=== PATIENT | female | born 1955 | race Two or more races ===

== ENCOUNTER 2024-09-01 22:07 | Emergency (ER) | payer SELFPAY ==
--- NOTE | 2024-09-01 22:09 | EKG_ITS ---
[facility] Test Date: 2024-09-01 Pat Name: KORI CALDERA Department: Room: - Gender: Female Continuous Improvement Manager: : 1955 Requested By: Reynaldo Darling Order Number: [id number] Reading MD: Reynaldo Darling Measurements Intervals [place] Rate: 69 P: 44 [place]: 148 QRS: -23 QRSD: 94 T: 35 QT: 360 QTc: 386 Interpretive Statements SINUS RHYTHM BORDERLINE LEFT AXIS DEVIATION [QRS AXIS < -20] MODERATE VOLTAGE CRITERIA FOR LVH, CONSIDER NORMAL VARIANT [MEETS CRITERIA IN ONE OF: R(aVL), S(V1), R(V5), R(V5/V6)+S(V1)] NONSPECIFIC T-WAVE ABNORMALITY No previous ECG available for comparison /store/S0/[id number].pdf
--- NOTE | 2024-09-01 22:13 | PD.EDRME ---
Rapid Medical Screening Exam RME Arrival date/time: 09/01/24 22:07 Chief Complaint: Shortness of Breath/Dyspnea RME Narrative: Here today with her daughter with a 1 week history of congestion and cough. She has DM and has had readings >600 today. She is brought in today by her daughter who provides the history. She has a history of pneumonitis and hypersensitivity. Diffuse wheezing noted bilaterally. Work up intiated. Bedside glucose is 171. Medical screening exam complete.
[2024-09-01 22:16] VITALS: BP 143/62; PULSE 110; RESP 20; O2SAT 91; BMI 32.5
--- NOTE | 2024-09-01 22:25 | PD.EDSOB ---
ED SOB =RME/HPI General Chief Complaint: Shortness of Breath/Dyspnea Stated Complaint: SOB Time Seen by Provider: 09/01/24 22:23 Arrival date/time: 09/01/24 22:07 Limitations: no limitations RME / HPI RME / HPI Narrative: Here today with her daughter with a 1 week history of congestion and cough. She has DM and has had readings >600 today. She is brought in today by her daughter who provides the history. She has a history of pneumonitis and hypersensitivity. Diffuse wheezing noted bilaterally. Work up intiated. Bedside glucose is 171. Medical screening exam complete. DR. AGUILAR MAIN ED EVALUATION: 69 y/o female with Hx of Reactive Pneumonitis and DM presents to ED BIB daughter c/o generalized weakness, cough and congestion x 1 week. Per daughter, patient gets pneumonitis with any viral infection. Patient has been treated with albuterol breathing treatments and steroids. Patient has had increased blood sugar which is normally controlled with insulin. Blood sugar had decreased 2 days ago although symptoms have worsened over the last 3 days, and so patient was brought in for lab work. No other concerns or complaints expressed at this time. Related Data Allergies Allergy/AdvReac Type Severity Reaction Status Date / Time No Known Allergies Allergy Verified 09/01/24 22:16 Review of Systems Review of Systems Systems Reviewed: All systems reviewed, normal except as documented Narrative Review of Systems: GEN: No fever, no chills, no weight loss EYES: No discharge, no visual changes, no pain HEENT: No ear pain, no congestion, no sore throat PULM: + shortness of breath, + cough, + congestion CV: No chest pain, no dyspnea on exertion, no palpitations GI: No nausea, no vomiting, no diarrhea, no abdominal pain, no constipation : No frequency, no urgency and no dysuria MUSC/SKEL: No joint pain, no back pain SKIN: No rash PSYCH: No hallucinations, no depression HEME/LYMPH: No easy bleeding or bruising tendencies NEURO: No weakness, no headache Past Medical History Past Medical History RESPIRATORY: Positive Respiratory Disorders (Reactive Pneumonitis) ENDOCRINE: Positive Diabetes Mellitus Type 2 Social History SMOKING STATUS: Never smoker ED Exam General Limitations: Present no limitations General appearance: Present alert and in no apparent distress Head Head exam: Present atraumatic Eye Eye exam: Present normal appearance, PERRL and EOMI ENT ENT exam: Present normal exam, normal oropharynx and mucous membranes moist Neck Neck exam: Present normal inspection, full ROM and trachea midline Chest Chest inspection: Present normal inspection and symmetric chest wall rise Respiratory Respiratory exam: Present respiratory distress, prolonged expiratory phase and other (shaking upon exhalation) Cardiovascular Cardiovascular exam: Present regular rate, normal rhythm and normal heart sounds Abdominal Exam Abdominal exam: Present soft and normal bowel sounds Extremities Exam Extremities exam: Present normal inspection and full ROM Back Exam Back exam: Present normal inspection and full ROM Neurological Exam Neurological exam: Present alert, oriented X3 and CN II-XII intact Psychiatric Psychiatric exam: Present normal affect and normal mood Skin Skin exam: Present warm, dry, intact and normal color Course Quality Measures none Orders Category Date Time Status EKG (ED ONLY) *Do not use* NOW Care 09/01/24 22:10 Active Glucose [Bedside Blood Glucose] NOW Care 09/01/24 22:16 Active EKG (ED Only) Stat Exams 09/01/24 22:09 Ordered BNP [B-Type Natriuretic Peptide] Stat Lab 09/01/24 22:11 Ordered CBC Stat Lab 09/01/24 22:10 Ordered CMP [Comprehensive Metabolic Panel] Stat Lab 09/01/24 22:10 Ordered Ketone [Beta Hydroxybutyrate] Stat Lab 09/01/24 22:10 Ordered Lactic Acid [Lactate (Lactic Acid)] Stat Lab 09/01/24 22:10 Ordered Troponin I Stat Lab 09/01/24 22:10 Ordered UA [Urinalysis] Stat Lab 09/01/24 22:11 Ordered Venous Blood Gas Stat Lab 09/01/24 22:10 Ordered Albuterol/Ipratr Rt Keysha [Duoneb Rt Keysha] Med 09/01/24 22:09 Once 3 ml INH X1 ONE Albuterol/Ipratr Rt Keysha [Duoneb Rt Keysha] Med 09/01/24 22:09 Pending 3 ml INH X1 ONE Sodium Chloride 0.9% 1000 ml [Ns] 1,000 ml Med 09/01/24 22:13 Discontinued IV 999 mls/hr Shortness of Breath / Dyspnea MDM Narrative MDM Narrative:: Scribe Attestation: Yvonne Go am scribing for and in the presence of Dr. Aguilar. Provider Notation: Although this document has been carefully reviewed, there may still be some phonetic and other typographical errors.? These errors are purely grammatical due to imperfections in the software program and should not be construed in any way to? compromise the substance of the patient's medical care during this visit. Patient signed-out to Dr. Zhang at 11 PM. Patient data External records reviewed:: [facility] previous records (No prior ED records available for review.) Clinical information provided by:: family (daughter) Social determinants that could affect healthcare access:: none Patient has the following chronic illnesses:: Type II DM How is presenting disease/condition affected by chronic disease/condition?: exacerbated by Evaluation data The following diagnostics were reviewed and interpreted by me:: lab results and EKG tracing(s) Lab and/or radiology exams considered but not ordered:: None Interpretation Summary: Pending lab results. Medications / Prescriptions Medications or Prescriptions considered but not ordered:: None Medication administrations:: Medication Administration History Discontinued Medications Albuterol/Ipratropium (Albuterol/Ipratropium (Duoneb) Rt Keysha 3 Ml Nebu) 3 ml INH X1 ONE Stop: 09/01/24 22:10 Albuterol/Ipratropium (Albuterol/Ipratropium (Duoneb) Rt Keysha 3 Ml Nebu) 3 ml INH X1 ONE Stop: 09/01/24 22:10 Sodium Chloride (Ns) 1,000 mls @ 999 mls/hr IV .Q1H1M ONE Stop: 09/01/24 23:13 See above Consultations Consultation(s) initiated? (list below): No Diagnosis Shortness of Breath Differential Diagnosis: congestive heart failure, community acquired pneumonia and pulmonary embolism Most likely diagnosis given after review of the tests above:: Reactive Pneumonitis Admission Indicated Admission indicated?: not indicated Explain why admission is indicated or not indicated:: Pending labs and final disposition. Admission Request Was there a request for admission?: No Disposition Plan Disposition Plan: other (specify) (Patient signed-out to Dr. Zhang at 11 PM.) Discharge Plan Problem List Clinical Impression: Pneumonitis Patient/Caregiver Discharge Instructions Print Language: Maori
[2024-09-01 22:48] LABS: Basophils # (Auto) 0.0 Thou/mm3 (0.0-0.2); Basophils % (Auto) 0 % (0-2.5); Eosinophils # (Auto) 0.0 Thou/mm3 (0.0-0.5); Eosinophils % (Auto) 0 % (0-10); Hematocrit 36.8 % (36.0-46.0); Hemoglobin 11.9 g/dL (12.0-16.0); Immature Granulocytes Auto 0.32 Thou/mm3 (0.00-0.00); Lymphocytes # (Auto) 2.2 Thou/mm3 (1.0-4.8); Lymphocytes % (Auto) 10 % (10-50); Mean Corpuscular HGB Conc 32.3 g/dl (31.0-37.0); Mean Corpuscular Hemoglobin 25.4 pg (25.0-35.0); Mean Corpuscular Volume 79 fL (80-100); Monocytes # (Auto) 1.5 Thou/mm3 (0.0-0.8); Monocytes % (Auto) 7 % (0-12); Neutrophils # (Auto) 17.0 Thou/mm3 (1.8-7.7); Neutrophils % (Auto) 81 % (37-80); Nucleated Red Blood Cell # 0.00 Thou/mm3 (0.00-0.00); Nucleated Red Blood Cell % 0 /100 WBC (0); Platelet Count 362 Thou/mm3 (140-440); RDW Standard Deviation 48.7 fL (36.4-46.3); Red Blood Count 4.69 Miln/mm3 (4.00-5.20); White Blood Count 21.0 Thou/mm3 (3.6-11.0)
[2024-09-01 22:49] LABS: Base Excess, Venous -1 (-3-3); Lactate (Lactic Acid) 2.7 mMol/L (0.4-2.0); O2 Saturation, Venous 96 % (96-97); PCO2, Venous 33 mmHg (36-56); PO2, Venous 73 mmHg (15-58); pH, Venous 7.44 (7.33-7.66)
[2024-09-01 22:49] LABS: Collection Type, Urine Voided; RBC,Urine 0 /hpf (0-3); Squamous Epithelial Cell,Urine 0 /hpf (0-5)
[2024-09-01] MEDS: ALBUTEROL/IPRATROPIUM (Duoneb) RT SOL 3 ML NEBU INH ×2 (22:51→23:58)
[2024-09-01 22:55] VITALS: PULSE 71; RESP 12; O2SAT 99
[2024-09-01 22:56] LABS: Bilirubin,Urine Negative (Negative); Blood,Urine Negative (Negative); Clarity,Urine Clear (Clear/Hazy); Color,Urine Colorless (Lt Yel-Yel); Glucose, Urine 3+ (Negative); Ketones,Urine Negative (Negative); Leukocyte Esterase,Urine Negative (Negative); Nitrite,Urine Negative (Negative); PH,Urine 6.0 (5.0-7.0); Protein,Urine Negative (Neg - Trace); Specific Gravity,Urine 1.006 (1.001-1.035); Urobilinogen,Urine Negative mg/dL (0.0-1.0); WBC,Urine 1 /hpf (0-5)
--- NOTE | 2024-09-01 22:57 | PD.EDADDENDU ---
Emergency Room Addendum <Yvonne Heath - Last Filed: 09/01/24 23:50> Addendum Narrative: I took over the care from previous shift physician at 11 PM on 09/01/2024. See previous notes for complete H & P and ED course. I reviewed all diagnostic test results. My interpretation of the EKG is sinus rhythm with no acute ST?T changes. Blood tests and urine tests Diagnoses include: Hypersensitive pneumonitis, Pneumonitis. Treatment here included IVF, Albuterol/Ipratroprium Duoneb. Based on my best medical judgment, made decision no further evaluation or treatment indicated at this time. Patient understands and agrees to the discharge instructions customized and printed, see below. Discharge Instructions from Dr. Zhang printed for you: 1. Fortunately, we were able to help you feel better. 2. Continue current care with your daughter, Dr. Medina. 3. Seek immediate medical care with worsening or with any concerns. Dean Zhang MD <Dean Zhang MD - Last Filed: 09/02/24 02:06> Addendum Narrative: I took over the care from previous shift physician at 11 PM on 09/01/2024. See previous notes for complete H & P and ED course. I reviewed all diagnostic test results. My interpretation of the EKG is sinus rhythm with no acute ST?T changes. Blood tests and urine tests remarkable for WBC 21 (due to recent daily steroids). Diagnoses include: Hypersensitive pneumonitis exacerbation. Treatment here included IVF and DuoNeb treatments. Significant improvement noted. Discussed the case with Dr. Medina (our ICU attending) and followed her instructions, including prescription for ipratropium Nebules and Tylenol with codeine. Based on my best medical judgment, made decision no further evaluation or treatment indicated at this time. Patient understands and agrees to the discharge instructions customized and printed, see below. Discharge Instructions from Dr. Zhang printed for you: 1. Fortunately, we were able to help you feel better. 2. Continue current care with your daughter, Dr. Medina. 3. Seek immediate medical care with worsening or with any concerns. Dean Zhang MD
[2024-09-01 23:10] LABS: B-Type Natriuretic Peptide 56 pg/mL (0-100)
[2024-09-01 23:11] LABS: Alanine Aminotransferase 25 U/L (10-49); Albumin, Serum 4.3 gm/dL (3.4-4.8); Albumin/Globulin Ratio 1.8 (1.2-2.2); Alkaline Phosphatase 85 U/L (46-116); Anion Gap 13 (7-16); Aspartate Amino Transferase 18 U/L (0-34); BUN/Creatinine Ratio 23 Ratio (12-20); Bilirubin,Total 0.4 mg/dL (0.3-1.2); Blood Urea Nitrogen 32 mg/dL (9-23); Calcium 10.0 mg/dL (8.3-10.6); Calcium (Corrected) 10.0 mg/dL (8.5-10.1); Carbon Dioxide 21.2 mMol/L (20.0-31.0); Chloride 102 mMol/L (98-107); Creatinine (Component) 1.4 mg/dL (0.6-1.3); Estimated Creatinine Clearance 40.3 mL/min (>60); Globulin 2.4 gm/dL (2.3-3.5); Glucose 157 mg/dL (74-106); Osmolality,Calculated 281 (275-295); Potassium 4.0 mMol/L (3.4-5.1); Sodium 136 mMol/L (136-145); Total Protein 6.7 gm/dL (5.7-8.2); Troponin I < 0.020 ng/mL (0.0-0.045); eGFR 41 See Note
[2024-09-01 23:35] LABS: Beta Hydroxybutyrate 0.1 mmol/L (<0.6)
[2024-09-01 23:54] VITALS: BP 116/41; PULSE 70; RESP 16; O2SAT 93
[2024-09-01 23:59] VITALS: PULSE 72; RESP 20; O2SAT 100
[2024-09-02] VITALS: BP 116/71; PULSE 94; RESP 18; TEMP 36.6; O2SAT 94
[2024-09-02 01:46] LABS: Reflex Lactate? Y
== END 2024-09-02 00:20 | disposition home or self-care (01) ==
PROVIDERS: Physician Assistant Medical; Emergency Provider Emergency Medicine
DX: J18.9 Pneumonia, unspecified organism (principal); R94.31 Abnormal electrocardiogram [ECG] [EKG]
CPT/HCPCS: 36415; 80053; 81001; 82010; 82803; 83605; 83880; 84484; 85025; 93005; 94640; 99284; A9270

== ENCOUNTER 2024-09-03 11:01 | Inpatient (IN) | payer MEDICARE, OTHER, SELFPAY ==
[2024-09-03] VITALS (23 sets, daily range): BP systolic 127–155; BP diastolic 49–67; PULSE 60–105; RESP 10–34; TEMP 36.4–36.7; O2SAT 90–100; BMI 32.5
--- NOTE | 2024-09-03 11:08 | EDNOTE_ITS ---
ED SOB =RME/HPI General Chief Complaint: Shortness of Breath/Dyspnea Stated Complaint: SOB Time Seen by Provider: 09/03/24 11:04 Arrival date/time: 09/03/24 11:01 Limitations: no limitations RME / HPI RME / HPI Narrative: 69 year old female with history of CAD s/p PCI, hypertension, diabetes, CKD, hypersensitivity pneumonitis presents to the ED with worsening shortness of breath over the past 8 days. She was brought in by her daughter, who reports that the patient is typically able to ambulate and perform ADLs without dyspnea. However, over the past week, the patient has become increasingly short of breath with minimal exertion. This morning, while sitting and drinking coffee, she experienced a sudden worsening of her shortness of breath, prompting the ED visit. She has been on oral steroids for the past 8 days for hypersensitivity pneumonitis flare. Initially, she was taking Prednisone 40 mg daily which was increased to 60 mg daily yesterday. This is reportedly her third flare requiring steroid therapy. Denies fever, chills, chest pain, abdominal pain, nausea, vomiting, diarrhea, leg swelling, or urinary complaints. Daughter also notes that the patient's blood glucose has been elevated over the past several days due to steroid use and is being managed with insulin. Related Data Home Medications ?Medication ?Instructions ?Recorded ?Confirmed [place] QWEEK 09/03/24 albuterol sulfate 90 mcg/actuation 2 inh inhalation Q4 H PRN shortness 09/03/24 09/03/24 aerosol inhaler of breath or wheezing aspirin 81 mg tablet,delayed 81 mg PO QDAY 09/03/24 release (Ecotrin Low Strength) clopidogrel 75 mg tablet (Plavix) 75 mg PO QDAY 09/03/24 dapagliflozin propanediol 10 mg 10 mg PO QDAY 09/03/24 09/03/24 tablet (Farxiga) fluoxetine 20 mg capsule 20 mg PO QDAY 09/03/2409/03 fluticasone furoate-vilanterol inhalation QDAY 5 insulin degludec 100 unit/mL (3 38 unit subcut QDAY 09/03/24 mL) subcutaneous pen (Tresiba FlexTouch U-100 insulin) insulin lispro 100 unit/mL 1 sliding scale dose subcut 09/03/24 09/03/24 subcutaneous pen USEASDIRECTD metformin 1,000 mg tablet,extended 1,000 mg PO QDAY 09/03/24 release 24hr (osmotic) metoprolol tartrate 25 mg tablet 12.5 mg PO Q12H 09/0309/03/24 mycophenolate mofetil 500 mg 750 mg PO BID 09/03/24 tablet (CellCept) rosuvastatin 20 mg tablet (Crestor) 20 mg PO HS 09/03/24 sacubitril 24 mg-valsartan 26 mg 1 tab PO BID 09/03/24 09/03/24 tablet (Entresto) Previous Rx's ?Medication ?Instructions ?Recorded acetaminophen 300 mg-codeine 30 mg 2 tab PO Q8H PRN co ugh #20 tabs 09/01/24 tablet ipratropium bromide 0.02 % 2.5 ml inhalation Q6H PRN 0 09/01/24 solution for inhalation shortness of breath or wheez ing #150 mL Allergies Allergy/AdvReac Type Severity Reaction Status Date / Time Iodinated Contrast Media Allergy Intermediate Difficulty Verified 09/03/24 11:20 Breathing Review of Systems Review of Systems Systems Reviewed: All systems reviewed, normal except as documented Past Medical History Past Medical History CARDIAC: Positive Cardiac Disorders, Coronary Artery Disease and Hypertension RESPIRATORY: Positive Respiratory Disorders (hypersensitivity pneumonitis.), Asthma and Pneumonia GENITOURINARY: Positive Chronic Kidney Disease MUSCULOSKELETAL: Positive Musculoskeletal Disorders (RIGHT KNEE TORN MENISCUS NO SURGERY AWAITING ORTHO) and Arthritis (OSTEOARTHRITIS) ENDOCRINE: Positive Diabetes Mellitus Type 2 Surgical History SURGICAL: Positive Coronary Stent (TRIPLE VESSEL S/P CARDIAC STENT X1) OTHER SURGICAL HX: RIGHT OVARIAN CYST SURG. Social History SMOKING STATUS: Never smoker Past Medical History Comments PMH COMMENT: PmHx: CAD status post 1 stent, orthostatic hypertension, CKD with baseline creatinine of 1.4, T2 IDDM, asthma, hypersensitivity pneumonitis Pshx: ovarian cyst removal, cholecystectomy, VATS FmHx: CAD, DM SocHx: Denies any alcohol, drugs or tobacco use. ED Exam General Limitations: Present no limitations General appearance: Present alert and other (increased work of breathing ) Head Head exam: Present atraumatic Eye Eye exam: Present normal appearance, PERRL and EOMI ENT ENT exam: Present normal exam, normal oropharynx and mucous membranes moist Neck Neck exam: Present normal inspection, full ROM and trachea midline Chest Chest inspection: Present normal inspection and symmetric chest wall rise Respiratory Respiratory exam: Present other (Increased work of breathing, increased respiratory rate, bilateral decreased breath sounds, expiratory wheezing, greater than inspiratory wheezing throughout, no rales or crackles) Cardiovascular Cardiovascular exam: Present regular rate, normal rhythm and normal heart sounds Abdominal Exam Abdominal exam: Present soft and normal bowel sounds Extremities Exam Extremities exam: Present normal inspection and full ROM; Absent pedal edema Back Exam Back exam: Present normal inspection and full ROM Neurological Exam Neurological exam: Present alert, oriented X3 and CN II-XII intact Psychiatric Psychiatric exam: Present normal affect and normal mood Skin Skin exam: Present warm, dry, intact and normal color Course Quality Measures none Orders Category Date Time Status Video Systems Engineer Q4H START 00 Care 09/03/24 11:39 Active EKG (ED ONLY) *Do not use* NOW Care 09/03/24 11:09 Completed Insert [Insert IV] NOW Care 09/03/24 11:09 Active Referral Respiratory Therapy Stat Cons 09/03/24 11:[address] chest wo con Stat Exams 09/03/24 11:25 Completed EKG (ED Only) Stat Exams 09/03/24 11:09 Draft B-Type Natriuretic Peptide Stat Lab 09/03/24 11:17 Completed Blood Culture (Lab) Stat Lab 09/03/24 11:22 Ordered CBC Stat Lab 09/03/24 11:17 Completed Comprehensive Metabolic Panel Stat Lab 09/03/24 11:17 Completed Lactic Acid [Lactate (Lactic Acid)] Stat Lab 09/03/24 11:17 Completed Legionella Ag, EIA, Urine* Stat Lab 09/03/24 Ordered Magnesium Stat Lab 09/03/24 11:17 Completed Partial Thromboplastin Time Stat Lab 09/03/24 11:17 Completed Procalcitonin Stat Lab 09/03/24 11:17 Completed Prothrombin Time with INR Stat Lab 09/03/24 11:17 Completed Sputum Culture and Gram Stain Stat Lab 09/03/24 15:12 Received Troponin I Stat Lab 09/03/24 11:17 Completed Urinalysis Stat Lab 09/03/24 13:05 Completed Venous Blood Gas Stat Lab 09/03/24 11:17 Completed ALBUTEROL RT 0.5ml [Proventil Rt 0.5ml] Med 09/03/24 11:15 Discontinued 10 mg INH X1 ONE Acetylcysteine 20% -4Ml [Mucomyst 20% -4ml] Med 09/03/24 11:23 Discontinued 3 ml PO X1 ONE Acetylcysteine 20% -4Ml [Mucomyst 20% -4ml] Med 09/03/24 11:28 Discontinued 4 ml INH X1 ONE Budesonide Rt [Pulmicort Rt Keysha] Med 09/03/24 11:23 Discontinued 0.5 mg INH X1 ONE INSULIN LISPRO (AdmeLOG) [HumaLOG] Med 09/03/24 12:30 Discontinued 10 unit SC X1 ONE MethylPREDNISolone.* [SoluMEDROL Inj] Med 09/03/24 11:09 Discontinued 125 mg IVP X1 ONE Ringers Lactated 1000 ml [Lactated Ringers] 1,000 ml Med 09/03/24 12:31 Discontinued IV 999 mls/hr Ringers Lactated 500 ml [Lactated Ringers] 500 ml Med 09/03/24 12:35 Discontinued IV 999 mls/hr Sodium Chloride 0.9% 500 ml [Ns] 500 ml Med 09/03/24 11:09 Discontinued IV 999 mls/hr Sodium Chloride Rt Keysha 10% [NS Rt Keysha 10%] Med 09/03/24 13:15 Discontinued 5 ml INH X1 ONE Sputum Induction PRN RT 09/03/24 13:30 Ordered Vital Signs Vital signs: Vital Signs Temperature 97.9 F 09/03/24 11:04 Pulse Rate 66 09/03/24 11:04 Respiratory Rate 16 09/03/24 11:04 Blood Pressure 151/55 H 09/03/24 11:04 Pulse Oximetry (%) 97 09/03/24 11:04 Oxygen Delivery Method Room Air 09/03/24 11:04 Pulse ox is 97% on room air which is adequate. Shortness of Breath / Dyspnea MDM Narrative MDM Narrative:: Corrine Go am scribing for and in the presence of Dr. Wolfe. Patient data External records reviewed:: [facility] previous records (I reviewed ED visit on 09/01/2024 ) Clinical information provided by:: patient and family (Daughter who is also an continuous dryout operator (Dr. Medina) provided history ) Social determinants that could affect healthcare access:: none Patient has the following chronic illnesses:: CAD s/p PCI, hypertension, diabetes, CKD, hypersensitivity pneumonitis How is presenting disease/condition affected by chronic disease/condition?: exacerbated by Evaluation data The following diagnostics were reviewed and interpreted by me:: lab results, radiology exam(s) and EKG tracing(s) (09/03/2024 @ 11:14 AM. NSR, rate 68, no STEMI. ) Lab and/or radiology exams considered but not ordered:: None Interpretation Summary: Ordering Physician: Bernabe Wolfe MD Date of Service: 09/03/24 Procedure(s): CT chest wo con Accession Number(s): [id number] cc: Bernabe Wolfe MD; Ralph Haro MD; NO PRIMARY/FAMILY,PHYSICIAN~ Examination: CT chest, without intravenous contrast. Sagittal and coronal 2-D reconstructions. Exam date and time: September 03, 2024: 33 hours INDICATIONS: Shortness of breath beginning 2 weeks ago. CTDI:vol (mGy) 17.1 DLP: (mGycm) 587 Technique: Multiple 3.0 mm axial sections of the chest to been obtained. Bone and lung density settings are obtained. Sagittal and coronal 2-D reconstructions have been obtained. Low dose protocols were performed. One or more of the following dose reduction techniques were used; automated exposure control, adjustment of the mA and/or KV according to patient size, use of iterative reconstruction technique. Findings: No thoracic aortic aneurysm dilatation Pulmonary artery segments are not enlarged. Prominent calcification left anterior descending left circumflex right coronary arteries Mild enlargement cardiac contour Soft opacities in the left upper lobe and both lung bases consistent with pneumonia Mildly dilated bronchi in the right lower lobe No visualized liver or splenic lesion Absent gallbladder IMPRESSION: Prominent coronary artery calcification Soft opacities in left upper lobe and both lung bases consistent with pneumonia, follow-up chest imaging recommended to document clearing Dictated By: Ralph Haro MD Signed By: <Electronically signed by Ralph Haro MD in OV> 09/03/24 1255 Medications / Prescriptions Medications or Prescriptions considered but not ordered:: None Medication administrations:: Medication Administration History Acetaminophen (Acetaminophen 325 Mg Tablet) 650 mg PO Q6H PRN PRN Reason: Fever >101.5 Stop: 10/03/24 13:36 Acetylcysteine (Acetylcysteine Keysha 20% 4 Ml Nebu) 3 ml INH Q4HRRT LOREN Stop: 10/03/24 14:59 Last Admin: 09/03/24 15:13 Dose: 3 ml Documented By: RELL Albuterol/Ipratropium (Albuterol/Ipratropium (Duoneb) Rt Keysha 3 Ml Nebu) 3 ml INH Q4HRRT LOREN Stop: 10/03/24 14:59 Last Admin: 09/03/24 15:13 Dose: 3 ml Documented By: RELL Albuterol/Ipratropium (Albuterol/Ipratropium (Duoneb) Rt Keysha 3 Ml Nebu) 3 ml INH Q2HR PRN PRN Reason: SHORTNESS OF BREATH OR WHEEZE Stop: 10/03/24 15:34 Aspirin (Aspirin Ec 81 Mg Tabec) 81 mg PO QDAY [facility] Stop: 10/04/24 08:59 Atorvastatin Calcium (Atorvastatin Calcium 20 Mg Tablet) 80 mg PO HS [facility] Stop: 10/03/24 20:59 Clopidogrel Bisulfate (Clopidogrel Bisulfate 75 Mg Tablet) 75 mg PO QDAY [facility] Stop: 10/04/24 08:59 Dextrose (Dextrose 50%-Water Inj 50 Ml Syringe) 25 ml IV Q15MIN PRN PRN Reason: BG 50-70 responsive npo pt Stop: 10/03/24 13:30 Dextrose (Dextrose 50%-Water Inj 50 Ml Syringe) 50 ml IV Q15MIN PRN PRN Reason: BG <50 OR BG <70 & pt unresponsive Stop: 10/03/24 13:30 Famotidine (Famotidine Inj 10 Mg/Ml Vial 2 Ml) 10 mg IVP BID [facility] Stop: 10/03/24 20:59 Fluoxetine HCl (Fluoxetine Hcl 10 Mg Capsule) 20 mg PO QDAY [facility] Stop: 10/04/24 08:59 Glucagon (Glucagon Inj 1 Mg Vial) 1 mg IM Q15MIN PRN PRN Reason: BG <70, and no IV access Heparin Sodium (Porcine) (Heparin Sod Inj 5000 Unit/Ml Vial) 5,000 unit SC Q8HR LOREN Stop: 09/17/24 13:59 Last Admin: 09/03/24 15:34 Dose: 5,000 unit Documented By: CECILIA Co-signed By: Azithromycin 500 mg/ Sodium (Chloride) 250 mls @ 250 mls/hr IV DAILY [facility] Stop: 09/11/24 08:59 Ceftriaxone Sodium/Dextrose (Rocephin/D5w 1gm Iv Premix) 1 gm in 50 mls @ 100 mls/hr IV QDAY [facility] Stop: 09/10/24 14:14 Last Admin: 09/03/24 15:34 Dose: 100 mls/hr Documented By: CECILIA Insulin Glargine (Insulin Glargine (Lantus) 5 Unit/0.05 Ml (Per 5 Units)) 38 unit SC HS [facility] Stop: 10/03/24 20:59 Insulin Human Lispro (Insulin Lispro (Admelog) 1 Unit/0.01 Ml Unit) 0 unit SC AC [facility]; Protocol Stop: 10/03/24 16:59 Insulin Human Lispro (Insulin Lispro (Admelog) 1 Unit/0.01 Ml Unit) 10 unit SC TID [facility] Stop: 10/03/24 13:59 Last Admin: 09/03/24 15:44 Dose: Not Given Documented By: CECILIA Non-Admin Reason: Glucose, LOW Methylprednisolone Sodium Succinate (Methylprednisolone Sod Succ 40 Mg Vial) 80 mg IVP BID [facility] Stop: 09/11/24 08:59 Metoclopramide HCl (Metoclopramide Inj 5 Mg/Ml Vial 2 Ml) 10 mg IVP Q6H PRN; Protocol PRN Reason: NAUSEA OR VOMITING Stop: 10/03/24 13:36 Metoprolol Tartrate (Metoprolol Tartrate 25 Mg Tablet) 12.5 mg PO BID [facility] Stop: 10/03/24 20:59 Discontinued Medications Acetylcysteine (Acetylcysteine Keysha 20% 4 Ml Nebu) 3 ml PO X1 ONE Stop: 09/03/24 11:24 Last Admin: 09/03/24 11:38 Dose: Not Given Documented By: BRIAN Non-Admin Reason: Cancelled by Provider Acetylcysteine (Acetylcysteine Keysha 20% 4 Ml Nebu) 4 ml INH X1 ONE Stop: 09/03/24 11:29 Last Admin: 09/03/24 11:30 Dose: 4 ml Documented By: RELL Albuterol (Albuterol Rt 2.5 Mg/0.5 Ml Nebu) 10 mg INH X1 ONE Stop: 09/03/24 11:16 Last Admin: 09/03/24 11:30 Dose: 10 mg Documented By: RELL Budesonide (Budesonide Rt 0.5 Mg/2 Ml Nebu) 0.5 mg INH X1 ONE Stop: 09/03/24 11:24 Last Admin: 09/03/24 11:30 Dose: 0.5 mg Documented By: RELL Famotidine (Famotidine Inj 10 Mg/Ml Vial 2 Ml) 20 mg IVP BID [facility] Stop: 10/03/24 20:59 Sodium Chloride (Ns) 500 mls @ 999 mls/hr IV .Q31M ONE Stop: 09/03/24 11:39 Last Infusion: 09/03/24 12:16 Dose: Infused Documented By: Admin: 09/03/24 11:34 Dose: 999 mls/hr Documented By: BRIAN Lactated Ringer's (Lactated Ringers) 1,000 mls @ 999 mls/hr IV .Q1H1M ONE Stop: 09/03/24 13:31 Last Admin: 09/03/24 12:35 Dose: Not Given Documented By: BRIAN Non-Admin Reason: Cancelled by Provider Lactated Ringer's (Lactated Ringers) 500 mls @ 999 mls/hr IV .Q31M ONE Stop: 09/03/24 13:05 Last Infusion: 09/03/24 13:54 Dose: Infused Documented By: Admin: 09/03/24 12:43 Dose: 999 mls/hr Documented By: BRIAN Magnesium Sulfate (Magnesium Sulfate Ivpb) 2 gm in 50 mls @ 25 mls/hr IV X1 ONE Stop: 09/03/24 15:35 Last Admin: 09/03/24 16:07 Dose: 25 mls/hr Documented By: CECILIA Azithromycin 500 mg/ Sodium (Chloride) 250 mls @ 250 mls/hr IV X1 ONE Stop: 09/03/24 14:44 Last Admin: 09/03/24 16:13 Dose: 250 mls/hr Documented By: CECILIA Insulin Human Lispro (Insulin Lispro (Admelog) 1 Unit/0.01 Ml Unit) 10 unit SC X1 ONE Stop: 09/03/24 12:31 Last Admin: 09/03/24 12:43 Dose: 10 unit Documented By: BRIAN Co-signed By: NATHALY Methylprednisolone Sodium Succinate (Methylprednisolone Sod Succ 62.5 Mg/Ml 2ml Vial) 125 mg IVP X1 ONE Stop: 09/03/24 11:10 Last Admin: 09/03/24 11:31 Dose: 125 mg Documented By: BRIAN Methylprednisolone Sodium Succinate (Methylprednisolone Sod Succ 40 Mg Vial) 80 mg IVP BID [facility] Stop: 09/10/24 20:59 Sodium Chloride (Sodium Chloride Rt 10% 15 Ml Nebu) 5 ml INH X1 ONE Stop: 09/03/24 13:16 Last Admin: 09/03/24 15:52 Dose: Not Given Documented By: RUFINA(2) Non-Admin Reason: Other, see note Comments: not needed See above Consultations Consultation(s) initiated? (list below): No Diagnosis Shortness of Breath Differential Diagnosis: acute exacerbation of chronic obstructive airways disease, congestive heart failure, community acquired pneumonia and asthma with exacerbation Most likely diagnosis given after review of the tests above:: Exacerbation of asthma Respiratory failure Admission Indicated Admission indicated?: indicated Admission Request Was there a request for admission?: Yes Admission Attestation Admission request attestation: Discussed case with [] from Hospitalist service regarding admission. Discussed patients ED course, exam findings, labs, and radiology results. The Hospitalist [agrees,declines] to accept the patient for admission. Disposition Plan Disposition Plan: Admit Critical Care Time Critical Care Time Critical Care Time: Yes Total Critical Care Time (min.): 45 Attestation: The high probability of sudden, clinically significant deterioration in the patient's condition required the highest level of my preparedness to intervene urgently. The services I provided to this patient were to treat and/or prevent clinically significant deterioration. Services included the following: chart data review, reviewing nursing notes and/or old charts, documentation time, ada accommodation consultant collaboration regarding findings and treatment options, medication orders and management, direct patient care, vital sign assessments and ordering, interpreting and reviewing diagnostic studies and lab tests. Aggregate critical care time includes only time during which I was engaged in work directly related to the patient's care, as described above, whether at bedside or elsewhere in the Emergency Department. It did not include time spent performing other reported procedures or the services of residents, students, nurses or physician assistants. Discharge Plan Plan Patient Disposition: Admit Acute Care w/in Hospital Problem List Clinical Impression: Asthma with exacerbation, Respiratory failure
--- NOTE | 2024-09-03 11:09 | EKG_ITS ---
[facility] Test Date: 2024-09-03 Pat Name: KORI CALDERA Department: Room: - Gender: Female Engine Specialist: : 1955 Requested By: Bernabe Darling Order Number: [id number] Reading MD: Bernabe Darling Measurements Intervals [employer] Rate: 68 P: 31 RI: 144 QRS: -29 QRSD: 95 T: -1 QT: 346 QTc: 370 Interpretive Statements SINUS RHYTHM BORDERLINE LEFT AXIS DEVIATION [QRS AXIS < -20] MODERATE VOLTAGE CRITERIA FOR LVH, CONSIDER NORMAL VARIANT [MEETS CRITERIA IN ONE OF: R(aVL), S(V1), R(V5), R(V5/V6)+S(V1)] Compared to ECG 09/01/2024 23:06:54 T-wave abnormality no longer present /store/S0/[id number].pdf
--- NOTE | 2024-09-03 11:18 | PC.NURSE ---
RT elam for Nebulizer tx.
--- NOTE | 2024-09-03 11:25 | XR_ITS ---
Examination: CT chest, without intravenous contrast. Sagittal and coronal 2-D reconstructions. Exam date and time: September 03, 2024: 33 hours INDICATIONS: Shortness of breath beginning 2 weeks ago. CTDI:vol (mGy) 17.1 DLP: (mGycm) 587 Technique: Multiple 3.0 mm axial sections of the chest to been obtained. Bone and lung density settings are obtained. Sagittal and coronal 2-D reconstructions have been obtained. Low dose protocols were performed. One or more of the following dose reduction techniques were used; automated exposure control, adjustment of the mA and/or KV according to patient size, use of iterative reconstruction technique. Findings: No thoracic aortic aneurysm dilatation Pulmonary artery segments are not enlarged. Prominent calcification left anterior descending left circumflex right coronary arteries Mild enlargement cardiac contour Soft opacities in the left upper lobe and both lung bases consistent with pneumonia Mildly dilated bronchi in the right lower lobe No visualized liver or splenic lesion Absent gallbladder IMPRESSION: Prominent coronary artery calcification Soft opacities in left upper lobe and both lung bases consistent with pneumonia, follow-up chest imaging recommended to document clearing
[2024-09-03 11:27] LABS: Base Excess, Venous 0 (-3-3); O2 Saturation, Venous 85 % (96-97); PCO2, Venous 36 mmHg (36-56); PO2, Venous 49 mmHg (15-58); pH, Venous 7.43 (7.33-7.66)
[2024-09-03 11:28] LABS: Basophils # (Auto) 0.0 Thou/mm3 (0.0-0.2); Basophils % (Auto) 0 % (0-2.5); Eosinophils # (Auto) 0.0 Thou/mm3 (0.0-0.5); Eosinophils % (Auto) 0 % (0-10); Hematocrit 39.3 % (36.0-46.0); Hemoglobin 12.7 g/dL (12.0-16.0); Immature Granulocytes Auto 0.31 Thou/mm3 (0.00-0.00); Lactate (Lactic Acid) 1.9 mMol/L (0.4-2.0); Lymphocytes # (Auto) 1.8 Thou/mm3 (1.0-4.8); Lymphocytes % (Auto) 8 % (10-50); Mean Corpuscular HGB Conc 32.3 g/dl (31.0-37.0); Mean Corpuscular Hemoglobin 25.8 pg (25.0-35.0); Mean Corpuscular Volume 80 fL (80-100); Monocytes # (Auto) 1.3 Thou/mm3 (0.0-0.8); Monocytes % (Auto) 6 % (0-12); Neutrophils # (Auto) 19.1 Thou/mm3 (1.8-7.7); Neutrophils % (Auto) 85 % (37-80); Nucleated Red Blood Cell # 0.00 Thou/mm3 (0.00-0.00); Nucleated Red Blood Cell % 0 /100 WBC (0); Platelet Count 402 Thou/mm3 (140-440); RDW Standard Deviation 50.2 fL (36.4-46.3); Red Blood Count 4.93 Miln/mm3 (4.00-5.20); White Blood Count 22.5 Thou/mm3 (3.6-11.0)
[2024-09-03] MEDS: ALBUTEROL RT 2.5 MG/0.5 ML NEBU 10 MG INH (11:30)
[2024-09-03] MEDS: BUDESONIDE RT 0.5 MG/2 ML NEBU INH (11:30)
[2024-09-03] MEDS: ACETYLCYSTEINE SOL 20% 4 ML NEBU INH (11:30)
[2024-09-03] MEDS: MethylPREDNISolone SOD SUCC 62.5 MG/ML 2ML VIAL 125 MG IVP (11:31)
[2024-09-03] MEDS: SODIUM CHLORIDE 0.9% 500 ML 500 ML 999 ML IV (11:34)
--- NOTE | 2024-09-03 11:48 | PC.NURSE ---
Dr. Somers at bedside evaluating patient for admission.
[2024-09-03 11:49] LABS: Alanine Aminotransferase 29 U/L (10-49); Albumin, Serum 4.2 gm/dL (3.4-4.8); Albumin/Globulin Ratio 1.7 (1.2-2.2); Alkaline Phosphatase 83 U/L (46-116); Anion Gap 13 (7-16); Aspartate Amino Transferase 25 U/L (0-34); BUN/Creatinine Ratio 24 Ratio (12-20); Bilirubin,Total 0.3 mg/dL (0.3-1.2); Blood Urea Nitrogen 41 mg/dL (9-23); Calcium 9.5 mg/dL (8.3-10.6); Calcium (Corrected) 9.5 mg/dL (8.5-10.1); Carbon Dioxide 23.0 mMol/L (20.0-31.0); Chloride 103 mMol/L (98-107); Creatinine (Component) 1.7 mg/dL (0.6-1.3); Estimated Creatinine Clearance 33.2 mL/min (>60); Globulin 2.5 gm/dL (2.3-3.5); Glucose 240 mg/dL (74-106); Magnesium 2.0 mg/dL (1.6-2.6); Osmolality,Calculated 295 (275-295); Potassium 4.4 mMol/L (3.4-5.1); Sodium 139 mMol/L (136-145); Total Protein 6.7 gm/dL (5.7-8.2); Troponin I < 0.020 ng/mL (0.0-0.045); eGFR 32 See Note
[2024-09-03 11:50] LABS: B-Type Natriuretic Peptide 86 pg/mL (0-100)
[2024-09-03 11:58] LABS: INR 0.9 (0.9-1.3); Partial Thromboplastin Time 24.3 Seconds (22.0-36.0); Prothrombin Time 10.4 Seconds (9.0-12.2)
[2024-09-03] MEDS: INSULIN LISPRO (AdmeLOG) 1 UNIT/0.01 ML UNIT 10 UNIT SC ×2 (12:43→21:25)
[2024-09-03] MEDS: RINGERS LACTATED 500 ML 500 ML 999 ML IV (12:43)
[2024-09-03 13:17] LABS: Collection Type, Urine Clean Catch; Squamous Epithelial Cell,Urine 0 /hpf (0-5)
--- NOTE | 2024-09-03 13:17 | PD.PUHP ---
Documentation for date of: 09/03/24 [facility] Pulmonology HP History of Present Illness History of present illness: Mrs. Mcgregor is a wonderfull pleasant 69-year-old female with a history of biopsy-proven hypersensitivity pneumonitis (HP), initially diagnosed in January 2019 following a VATS lung biopsy performed in [place]. Her disease course has been characterized by recurrent inflammatory exacerbations, primarily triggered by viral upper respiratory infections, resulting in acute pulmonary inflammation and bronchospasm. Her daughter, Dr. Medina has been helpful at providing the detailed history recorded below. Past imaging studie reports have been reviewed from her medical records in [place], but actual images are not currently available for review. Her baseline pulmonary imaging has shown reversibility of findings, with CT initially resembling idiopathic pulmonary fibrosis (IPF) (per daughter, Dr. Medina) but returning to baseline following steroid treatment. Her most recent CT in late 2022 showed no chronic fibrotic changes, with only mild right-sided bronchitis noted. She has been treated with mycophenolate mofetil (CellCept) for approximately one year and intermittently with corticosteroids for flares. Approximately two weeks ago, during international travel in [place], the patient developed URI symptoms, which subsequently progressed to another HP flare. This episode worsened following a beach trip and culminated in an ED visit due to severe bronchospasm and profound weakness. Home management efforts, including frequent nebulized bronchodilator therapy (recently escalated to every two hours with the addition of ipratropium), oral mucolytics, and chest percussion therapy, were insufficient to control symptoms. She has been on systemic corticosteroids for about one week during this flare (initially prednisone 40 mg daily for 4 days, increased to 60 mg daily), marking her third steroid course this year. Notably, she developed severe steroid-induced hyperglycemia with glucometer readings >600 mg/dL, requiring high-dose insulin therapy (Lispro 50-60 units and long-acting insulin 35 units). No fever has been reported during this episode. She also experienced profound weakness over the weekend, described as an inability to ambulate or support her own body weight, prompting the family to seek emergency care for further evaluation and labs. Historically, her flares resolve with 2-3 months of steroid therapy. She has no known environmental or allergen triggers; viral infections are the presumed etiology based on clinical pattern and literature review. Her baseline pulmonary function is relatively preserved, with the ability to walk two miles when well. Pulmonary function tests and diffusion capacity, most recently done in [place], have remained stable over the past five years. There is a mild baseline impairment in difussion. The patient has never required home oxygen but did recently obtain an oxygen concentrator as a precautionary measure. Her family is highly medically capable and has managed many aspects of her care at home with extensive equipment and interventions, aiming to avoid hospitalizations given the patient?s strong preference and her immunosuppressed state. Given worsening symptoms despite maximal home interventions, she presented to the ED for further evaluation, lab work, and determination of the appropriate level of care (telemetry vs ICU). Primary concerns include assessing for dehydration, electrolyte abnormalities (e.g., hypokalemia), and complications from hyperglycemia and steroid therapy. Review of Systems Review of Systems Narrative Review of Systems: SEE HPI otherwise negative No jnt pain, no bleeding, no current rash but there is a hx of past rash - self resolved - no dysphagia - no LOC or acute chagne in motor strength weakness 2wks ago typical URI symptoms (sore throat, sneezing, rhinorhea) Meds Home Medications and Allergies Allergies Allergy/AdvReac Type Severity Reaction Status Date / Time Iodinated Contrast Media Allergy Intermediate Difficulty Verified 09/03/24 11:20 Breathing Exam Vital Signs Temp Pulse Resp BP Pulse Ox O2 Del Method 97.9 F 66 20 151/55 H 100 Room Air 09/03/24 11:04 09/03/24 12:46 09/03/24 12:46 09/03/24 11:04 09/03/24 12:46 09/03/24 11:04 Narrative Exam GENERAL: Patient appears to be ill but not in severe distress. HEENT: No facial asymmetry, EOM normal, , no epistaxis, neck supple PULM: bilateral diffuse coarse Rales with diffuse prolonged expiratory phase and wheezing, symmetric well-expanded excursions CARDIAC: Regular rate and rhythm with no pathologic murmurs and no S3 detected. S1, S2 normal GASTROINTESTINAL: Abdomen is soft and nontender without palpable masses, bowel sounds present EXTREMITIES: Radial, femoral and pedal pulses are palpable. There is no leg edema and no sign of phlebitis feet are cool generalized edema is noted. SKIN: Warm and dry without significant rashes or discoloration. NEURO: Moves all extremities, responds to tactile stimulation, mental status is normal, symmetrical antigravity bilateral upper and lower extremity motor strength. Physical Exam Completion Physical Exam Complete?: Yes Results - Medical Director/Head Team Physician Labs 09/03/24 11:17 09/03/24 11:17 Labs: Short CBC 09/03/24 Range/Units 11:17 WBC 22.5 H (3.6-11.0) Thou/mm3 Hgb 12.7 (12.0-16.0) g/dL Hct 39.3 (36.0-46.0) % Plt Count 402 D (140-440) Thou/mm3 BMP 09/03/24 11:17 Sodium 139 Potassium 4.4 Chloride 103 Carbon Dioxide 23.0 BUN 41 H Creatinine 1.7 H Glucose 240 H D Calcium 9.5 Cardiac Enzymes 09/03/24 Range/Units 11:17 Troponin I < 0.020 (0.0-0.045) ng/mL Liver Function 09/03/24 Range/Units 11:17 Total Bilirubin 0.3 (0.3-1.2) mg/dL AST 25 (0-34) U/L ALT 29 (10-49) U/L Alkaline Phosphatase 83 (46-116) U/L Albumin 4.2 (3.4-4.8) gm/dL ABG Interpretation ABG results: 09/03/24 11:17 VBG pH 7.43 VBG pCO2 36 VBG pO2 49 D VBG Base Excess 0 Assessment & Plan Additional Assessment Additional Assessment: Acute exacerbation of obstructive lung disease: Trigger appears to be secondary to a subacute progressive upper respiratory tract infection. COVID-19 and influenza testing should be completed The cause of the obstructive lung disease appears to be multifactorial related to history possibly progressive hypersensitivity pneumonitis with underlying asthma CT imaging has been reviewed by me; there is patchy groundglass, mosaic attenuation probably from air trapping, and diffuse tiny nodular infiltrates particularly in the right lower lobe. There is also mild bronchiectasis in the right lower lobe. Given the miliary type pattern of nodular distribution in in the right lower lobe, history of spontaneously resolving rashes, and responsiveness to steroids; sarcoidosis should also be on the differential. 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 Concurrent viral, fungal versus bacterial infection cannot be ruled out especially given the appearance of the right lower lobe nodules. Some of this may be chronic but without direct comparison to her prior CTs I am unable to tell. Infectious disease workup has been ordered including procalcitonin, Legionella, sputum culture GS, and Fungitell She has trouble tolerating p.o. steroids therefore I agree with IV Solu-Medrol. Please reduce the dose to 80 mg IV twice daily tomorrow. She will likely require long-term taper over the next 2 weeks. Her only long-acting inhaled outpatient medication is fluticasone; she should be transition to triple therapy with Trelegy Ellipta as an outpatient or equivalent combination inhaler. I also recommend outpatient follow up at a tertiary care facility ILD program. I have no objections to IV fluids given her current DARIELA which is probably exacerbated by hyperglycemia/ dehydration. Thank you for the opportunity to participate in the care of Mrs. Medina's lung disease. I will we will continue to follow along with you. Additional Plan Additional Plan: PLAN: See MD orders and discussion above. Will continue supportive care of the organ system problems, diagnoses, and failures noted above. [A central line continues to be necessary for infusion of medications and IV fluids, it is to be removed when other adequate venous access is accomplished.] [Cannot be safely managed without restraints as potential for harm secondary to inadvertent movement and loss of tubes and lines outweighs the burdens of restraint.] This patient is critically ill and required [] minutes of my time to provide documentation, evaluate, manage and maintain or prevent deterioration of the organ systems and problems noted above. This critical care time does not include time I spent performing procedures that are reported separately. [If mccoy catheter present, it remains necessary to monitor urine output continuously, and/or divert urine from the skin. It will be removed per policy when it is not needed for these purposes.] Provider Notation Provider Notation: Although this document has been carefully reviewed, there may still be some phonetic and other typographical errors. These errors are purely grammatical due to imperfections in the software program and should not be construed in any way to compromise the substance of the patient's medical care during this visit. Thank you for the opportunity and privilege in assisting you with this patient's care and management. Quality Measures Quality Measures none Advance care planning discussed with:: other
[2024-09-03 13:35] LABS: Bilirubin,Urine Negative (Negative); Blood,Urine Negative (Negative); Clarity,Urine Clear (Clear/Hazy); Color,Urine Colorless (Lt Yel-Yel); Glucose, Urine 4+ (Negative); Ketones,Urine Negative (Negative); Leukocyte Esterase,Urine Negative (Negative); Nitrite,Urine Negative (Negative); PH,Urine 6.0 (5.0-7.0); Protein,Urine Negative (Neg - Trace); RBC,Urine < 1 /hpf (0-3); Specific Gravity,Urine 1.011 (1.001-1.035); Urobilinogen,Urine Negative mg/dL (0.0-1.0); WBC,Urine 3 /hpf (0-5)
[2024-09-03 13:59] LABS: Procalcitonin 0.11 ng/ml (0.0-0.49)
[2024-09-03 14:21] LABS: Glucose Estimated Average 183 mg/dL (80-131); Hemoglobin A1C 8.0 % Hgb (4.8-6.0)
--- NOTE | 2024-09-03 14:22 | PD.HHHP ---
Documentation for date of: 09/03/24 HPI - Hospitalist History of Present Illness History of present illness: Patient is a 69-year-old female with past medical history of hypertension, insulin-dependent diabetes mellitus type 2, hypersensitivity pneumonitis, asthma, CAD status post 1 stent in 2011, CKD with baseline creatinine of 1.4 who presents to ED with worsening shortness of breath that initially started about 2 weeks ago. Patient was traveling in [place] when she first began to be short of breath. Patient was started on steroids with some improvement. However, for the past week she has been having worsening generalized weakness, cough, dyspnea on exertion and productive cough. Patient was initially diagnosed with hypersensitivity pneumonitis in 2016 status post VATS. And has been on mycophenolate and will take steroids for acute flares. Patient has been on prednisone at 60 mg daily which has caused some difficulty with controlling her blood sugars. Patient at baseline takes Trulicity at 20 units daily, but now requiring about 38 units and a total of 120 units of lispro throughout the day. Patient has been on DuoNebs 4 hours at home, but continues to have scattered wheezing and congestion. Patient has breaks in sentences while speaking. She denies any nausea, vomiting, shortness of breath, chest pain, fevers, chills, dysuria otherwise. She was recently seen in the ED due to hyperglycemia and shortness of breath. Patient was subsequently sent home with DuoNebs without any improvement of her symptoms. Upon evaluation in the ED, Vital signs were Temperature 97.9, heart rate 66, respiratory rate of 16 but labored and blood pressure of 151/55. Patient was noted to have leukocytosis of 22.5 likely due to steroid use. VBG does not show any CO2 retention. Creatinine now 1.7 with mild DARIELA from 1.4. Troponin negative. Patient has since received 1 L IV fluids, 10 units of lispro due to blood glucose of 258, 125 mg of Solu-Medrol and a breathing treatment with Mucomyst. Patient reports mild improvement of respiratory status that only last about 15-30min after breathing treatment. CT chest was done Showing prominent coronary artery calcification and soft opacities in the left upper lobe and both lung bases consistent with pneumonia. In the ED due to persistent dyspnea, will admit patient for further workup and medical management of acute asthma exacerbation versus acute flare of hypersensitivity pneumonitis with possible superimposed pneumonia. Review of Systems Review of Systems Systems Reviewed: All systems reviewed, normal except as documented Past Medical History Past Medical History Comments PMH COMMENT: PmHx: CAD status post 1 stent, orthostatic hypertension, CKD with baseline creatinine of 1.4, T2 IDDM, asthma, hypersensitivity pneumonitis Pshx: ovarian cyst removal, cholecystectomy, VATS FmHx: CAD, DM SocHx: Denies any alcohol, drugs or tobacco use. Meds Home Medications and Allergies Home Medications ?Medication ?Instructions ?Recorded ?Confirmed ?Type [place] QWEEK 09/03/24 History albuterol sulfate 90 mcg/actuation 2 inh inhalation Q4H PRN shortness 09/03/24 09/03/24 History aerosol inhaler of breath or wheezing aspirin 81 mg tablet,delayed 81 mg PO QDAY 09/03/24 09/03/24 History release (Ecotrin Low Strength) clopidogrel 75 mg tablet (Plavix) 75 mg PO QDAY 09/03/24 09/03/24 History dapagliflozin propanediol 10 mg 10 mg PO QDAY 09/03/24 09/03/24 History tablet (Farxiga) fluoxetine 20 mg capsule 20 mg PO QDAY 09/03/24 09/03/24 History fluticasone furoate-vilanterol inhalation QDAY 09/03/24 History insulin degludec 100 unit/mL (3 38 unit subcut QDAY 09/03/24 09/03/24 History mL) subcutaneous pen (Tresiba FlexTouch U-100 insulin) insulin lispro 100 unit/mL 1 sliding scale dose subcut 09/03/24 09/03/24 History subcutaneous pen USEASDIRECTD metformin 1,000 mg tablet,extended 1,000 mg PO QDAY 09/03/24 09/03/24 History release 24hr (osmotic) metoprolol tartrate 25 mg tablet 12.5 mg PO Q12H 09/03/24 09/03/24 History mycophenolate mofetil 500 mg 750 mg PO BID 09/03/24 09/03/24 History tablet (CellCept) rosuvastatin 20 mg tablet (Crestor) 20 mg PO HS 09/03/24 09/03/24 History sacubitril 24 mg-valsartan 26 mg 1 tab PO BID 09/03/24 09/03/24 History tablet (Entresto) Allergies Allergy/AdvReac Type Severity Reaction Status Date / Time Iodinated Contrast Media Allergy Intermediate Difficulty Verified 09/03/24 11:20 Breathing Exam Vital Signs Temp Pulse Resp BP Pulse Ox O2 Del Method 97.9 F 66 25 H 127/49 L 93 L Room Air 09/03/24 13:27 09/03/24 13:27 09/03/24 13:27 09/03/24 13:27 09/03/24 13:27 09/03/24 13:27 Narrative Gen: Labored breathing, well dressed well nourished, cannot speak in full sentences due to dyspnea HEENT: NCAT, PERRLOU, Sclera anicteric, conjunctiva noninjected, oral mucosa moist without erythema Neck: Supple, full range of motion, no LAD CV: RRR, no murmurs, rubs or gallops Resp: Diminished breath sounds in b/l lung bases, scattered rhonchi in all lung ramirez GI: abdomen soft, bowel sounds noted, no tenderness to palpation, no guarding or rebound tenderness, no organomegaly Skin: clean, dry, no rashes, lesions or ecchymosis Ext: no clubbing, cyanosis, or edema Neuro: A&O x3, CN II- XII intact b/l, no focal neurological deficits Results - Hospitalist Labs Diagrams: 09/03/24 11:17 09/03/24 11:17 Labs: Short CBC 09/03/24 Range/Units 11:17 WBC 22.5 H (3.6-11.0) Thou/mm3 Hgb 12.7 (12.0-16.0) g/dL Hct 39.3 (36.0-46.0) % Plt Count 402 D (140-440) Thou/mm3 BMP 09/03/24 11:17 Sodium 139 Potassium 4.4 Chloride 103 Carbon Dioxide 23.0 BUN 41 H Creatinine 1.7 H Glucose 240 H D Calcium 9.5 Cardiac Enzymes 09/03/24 Range/Units 11:17 Troponin I < 0.020 (0.0-0.045) ng/mL Liver Function 09/03/24 Range/Units 11:17 Total Bilirubin 0.3 (0.3-1.2) mg/dL AST 25 (0-34) U/L ALT 29 (10-49) U/L Alkaline Phosphatase 83 (46-116) U/L Albumin 4.2 (3.4-4.8) gm/dL Urine 09/03/24 Range/Units 13:05 Urine Color Colorless A (Lt Yel-Yel) Urine Clarity Clear (Clear/Hazy) Urine pH 6.0 (5.0-7.0) Ur Specific [place] 1.011 (1.001-1.035) Urine Protein Negative (Neg - Trace) Urine Glucose (UA) 4+ A (Negative) ABG Interpretation ABG results: 09/03/24 11:17 VBG pH 7.43 VBG pCO2 36 VBG pO2 49 D VBG Base Excess 0 Assessment & Plan -Hospitalist Additional Assessment Acute Asthma Exacerbation Acute Hypersensitivity Pneumonia with suspected superimposed atypical vs Gram negative bacterial pneumonia - Admit to telemetry - Pulmonology consulted, case discussed and appreciate recommendations - received continuous breathing treatment in ED with very mild improvement of dyspnea - Continue with duonebs q4h with mucomyst - received 125mg of solumedrol in ED and took prednisone 60mg PO daily. Will start on solumedrol 80mg IV BID. Monitor BG closely - chest physiotherapy ordered - started on azithromycin and ceftriaxone for coverage of superimposed pneumonia - Pending infectious w/u including legionella, sputum cultures, [id number] - Holding mycophenolate in the setting of acute flare/ infection due to immunosuppression - Patient will ultimately need referral to tertiary center for ILD clinic upon discharge and Trelegy DARIELA on CKD - receiving 1L bolus in ED - Encouraged PO hydration Type 2 IDDM - pending A1c - hyperglycemia 2/2 recent increased need for steroids, will increase home lantus dose of 20 to 38u with Lispro 10u TID and sliding scale - uptitrate insulin as needed - low consistent carb diet - holding oral hypoglycemic agents due to DARIELA Hypertension - pt at baseline has orthostatic HTN - will restart home metoprolol 12.5mg PO BID - Holding entresto due to DARIELA CAD - continue home ASA, plavix and rosuvastatin Additional Plan Additional Plan: GI ppx: pepcid Nutrition: low consistent carbohydrate DVT Prophylaxis: Heparin 5000u q8h Code Status: full Disposition: Telemetry Quality Measures Quality Measures none Advance care planning discussed with:: patient and child
[2024-09-03] MEDS: ACETYLCYSTEINE SOL 20% 4 ML NEBU 3 ML INH ×3 (15:13→22:02)
[2024-09-03] MEDS: ALBUTEROL/IPRATROPIUM (Duoneb) RT SOL 3 ML NEBU INH ×6 (15:13→22:02)
[2024-09-03] MEDS: cefTRIAXone/D5w 1gm IV premix 1 GM/50 ML BAG IV (15:34)
[2024-09-03] MEDS: HEPARIN SOD INJ 5000 UNIT/ML VIAL SC ×2 (15:34→21:19)
[2024-09-03] MEDS: Magnesium Sulfate 2 GM Ivpb 2 GM/50 ML BAG IV (16:07)
[2024-09-03] MEDS: AZITHROMYCIN INJ 500 MG in SODIUM CHLORIDE 0.9% 250 ML 250 ML 250 MG IV (16:13)
[2024-09-03] MEDS: INSULIN LISPRO (AdmeLOG) 1 UNIT/0.01 ML UNIT SC (17:20)
[2024-09-03] MEDS: ATORVASTATIN CALCIUM 20 MG TABLET 80 MG PO (21:14)
[2024-09-03] MEDS: METOPROLOL TARTRATE 25 MG TABLET 12.5 MG PO (21:14)
[2024-09-03] MEDS: FAMOTIDINE INJ 10 MG/ML VIAL 2 ML IVP (21:18)
[2024-09-03] MEDS: INSULIN GLARGINE (Lantus) 5 UNIT/0.05 ML (PER 5 UNITS) 38 UNIT SC (21:20)
[2024-09-04] VITALS (18 sets, daily range): BP systolic 120–151; BP diastolic 50–62; PULSE 65–89; RESP 17–27; TEMP 36.2–36.9; O2SAT 89–100; BMI 32.5
[2024-09-04] MEDS: ACETYLCYSTEINE SOL 20% 4 ML NEBU 3 ML INH (02:26)
[2024-09-04] MEDS: ALBUTEROL/IPRATROPIUM (Duoneb) RT SOL 3 ML NEBU INH ×7 (02:27→23:59)
[2024-09-04] MEDS: INSULIN LISPRO (AdmeLOG) 1 UNIT/0.01 ML UNIT 10 UNIT SC (06:10)
[2024-09-04] MEDS: HEPARIN SOD INJ 5000 UNIT/ML VIAL SC ×3 (06:11→21:37)
[2024-09-04 06:36] LABS: Basophils # (Auto) 0.0 Thou/mm3 (0.0-0.2); Basophils % (Auto) 0 % (0-2.5); Eosinophils # (Auto) 0.0 Thou/mm3 (0.0-0.5); Eosinophils % (Auto) 0 % (0-10); Hematocrit 36.7 % (36.0-46.0); Hemoglobin 11.5 g/dL (12.0-16.0); Immature Granulocytes Auto 0.40 Thou/mm3 (0.00-0.00); Lymphocytes # (Auto) 2.8 Thou/mm3 (1.0-4.8); Lymphocytes % (Auto) 14 % (10-50); Mean Corpuscular HGB Conc 31.3 g/dl (31.0-37.0); Mean Corpuscular Hemoglobin 25.6 pg (25.0-35.0); Mean Corpuscular Volume 82 fL (80-100); Monocytes # (Auto) 1.2 Thou/mm3 (0.0-0.8); Monocytes % (Auto) 6 % (0-12); Neutrophils # (Auto) 15.5 Thou/mm3 (1.8-7.7); Neutrophils % (Auto) 78 % (37-80); Nucleated Red Blood Cell # 0.00 Thou/mm3 (0.00-0.00); Nucleated Red Blood Cell % 0 /100 WBC (0); Platelet Count 381 Thou/mm3 (140-440); RDW Standard Deviation 50.5 fL (36.4-46.3); Red Blood Count 4.50 Miln/mm3 (4.00-5.20); White Blood Count 19.8 Thou/mm3 (3.6-11.0)
[2024-09-04 07:13] LABS: Alanine Aminotransferase 23 U/L (10-49); Albumin, Serum 3.7 gm/dL (3.4-4.8); Albumin/Globulin Ratio 1.8 (1.2-2.2); Alkaline Phosphatase 67 U/L (46-116); Anion Gap 11 (7-16); Aspartate Amino Transferase 16 U/L (0-34); BUN/Creatinine Ratio 26 Ratio (12-20); Bilirubin,Total 0.3 mg/dL (0.3-1.2); Blood Urea Nitrogen 36 mg/dL (9-23); Calcium 8.9 mg/dL (8.3-10.6); Calcium (Corrected) 9.1 mg/dL (8.5-10.1); Carbon Dioxide 25.3 mMol/L (20.0-31.0); Chloride 105 mMol/L (98-107); Creatinine (Component) 1.4 mg/dL (0.6-1.3); Estimated Creatinine Clearance 40.3 mL/min (>60); Globulin 2.1 gm/dL (2.3-3.5); Glucose 149 mg/dL (74-106); Osmolality,Calculated 292 (275-295); Potassium 4.4 mMol/L (3.4-5.1); Sodium 141 mMol/L (136-145); Total Protein 5.8 gm/dL (5.7-8.2); eGFR 41 See Note
--- NOTE | 2024-09-04 08:28 | PD.HHPROG ---
Documentation for date of: 09/04/24 Subjective - Hospitalist Subjective Interval history: Patient seen and evaluated this AM. Daughter is at bedside. Patient sitting up in bed eating breakfast. She is able to speak in full sentences without any breaks. She has required 3 extra as needed breathing treatments overnight in addition to her q4h doses. Mucomyst appeared to be causing patient to have bronchospasm. She otherwise denies any fevers, chest pain or chills. She continues to have a wet cough. She states that she feels well at rest, but had gotten very tremulous and short of breath upon getting up to use the bathroom. BG was 61 this morning. Daughter states that the patient eats more carbohydrates at home which is likely the reason why her BG is lower here. Review of Systems Review of Systems Systems Reviewed: All systems reviewed, normal except as documented Exam Vital Signs Temp Pulse Resp BP Pulse Ox O2 Del Method 97.4 F 75 20 142/50 H 93 L Nasal Cannula 09/04/24 08:00 09/04/24 08:00 09/04/24 08:00 09/04/24 08:00 09/04/24 08:00 09/04/24 08:00 Narrative Gen: No acute distress HEENT: NCAT, PERRLOU, Sclera anicteric, conjunctiva noninjected, oral mucosa moist without erythema Neck: Supple, full range of motion, no LAD CV: RRR, no murmurs, rubs or gallops Resp: improved air movement, rhonchi noted in b/l lung bases (right >> left), no wheezing or crackles noted GI: abdomen soft, bowel sounds noted, no tenderness to palpation, no guarding or rebound tenderness, no organomegaly Skin: clean, dry, no rashes, lesions or ecchymosis Ext: no clubbing, cyanosis, or edema Neuro: A&O x3, CN II- XII intact b/l, no focal neurological deficits Objective - Hospitalist Labs Diagram: 09/04/24 05:57 09/04/24 05:57 Labs: Laboratory Results - last 24 hr 09/03/24 09/03/24 09/03/24 11:17 13:05 13:31 WBC 22.5 H RBC 4.93 Hgb 12.7 Hct 39.3 MCV 80 MCH 25.8 MCHC 32.3 RDW Std Deviation 50.2 H Plt Count 402 D Neut % (Auto) 85 H Lymph % (Auto) 8 L [place] % (Auto) 6 Eos % (Auto) 0 Baso % (Auto) 0 Neut # (Auto) 19.1 H Lymph # (Auto) 1.8 [place] # (Auto) 1.3 H Eos # (Auto) 0.0 Baso # (Auto) 0.0 Immature Gran # (Auto) 0.31 H Absolute Nucleated RBC 0.00 Immature Gran % 1 H Nucleated RBC % 0 PT 10.4 INR 0.9 APTT 24.3 VBG pH 7.43 VBG pCO2 36 VBG pO2 49 D VBG O2 Sat (Diane) 85 L VBG Base Excess 0 Sodium 139 Potassium 4.4 Chloride 103 Carbon Dioxide 23.0 Anion Gap 13 BUN 41 H Creatinine 1.7 H Estim Creat Clear Calc 33.2 L eGFR 32 L BUN/Creatinine Ratio 24 H Glucose [address] Glu mg/dL 183 H Hemoglobin A1c 8.0 H Calculated Osmolality 295 Lactic Acid 1.9 Calcium 9.5 Corrected Calcium 9.5 Magnesium 2.0 Total Bilirubin 0.3 AST 25 ALT 29 Alkaline Phosphatase 83 Troponin I < 0.020 B-Natriuretic Peptide 86 Total Protein 6.7 Albumin 4.2 Globulin 2.5 Albumin/Globulin Ratio 1.7 Procalcitonin 0.11 Ur Collection Type Clean Catch Urine Color Colorless A Urine Clarity Clear Urine pH 6.0 Ur Specific [place] 1.011 Urine Protein Negative Urine Glucose (UA) 4+ A Urine Ketones Negative Urine Blood Negative Urine Nitrite Negative Urine Bilirubin Negative Urine Urobilinogen (Auto) Negative Ur Leukocyte Esterase Negative Urine RBC < 1 Urine WBC 3 Ur Squamous Epith Cells 0 Urine Bacteria None 09/04/24 05:57 WBC 19.8 H RBC 4.50 Hgb 11.5 L Hct 36.7 MCV 82 MCH 25.6 MCHC 31.3 RDW Std Deviation 50.5 H Plt Count 381 Neut % (Auto) 78 Lymph % (Auto) 14 [place] % (Auto) 6 Eos % (Auto) 0 Baso % (Auto) 0 Neut # (Auto) 15.5 H Lymph # (Auto) 2.8 [place] # (Auto) 1.2 H Eos # (Auto) 0.0 Baso # (Auto) 0.0 Immature Gran # (Auto) 0.40 H Absolute Nucleated RBC 0.00 Immature Gran % 2 H Nucleated RBC % 0 PT INR APTT VBG pH VBG pCO2 VBG pO2 VBG O2 Sat (Diane) VBG Base Excess Sodium 141 Potassium 4.4 Chloride 105 Carbon Dioxide 25.3 Anion Gap 11 BUN 36 H Creatinine 1.4 H Estim Creat Clear Calc 40.3 L eGFR 41 L BUN/Creatinine Ratio 26 H Glucose [address] Glu mg/dL Hemoglobin A1c Calculated Osmolality 292 Lactic Acid Calcium 8.9 Corrected Calcium 9.1 Magnesium Total Bilirubin 0.3 AST 16 ALT 23 Alkaline Phosphatase 67 Troponin I B-Natriuretic Peptide Total Protein 5.8 Albumin 3.7 D Globulin 2.1 L Albumin/Globulin Ratio 1.8 Procalcitonin Ur Collection Type Urine Color Urine Clarity Urine pH Ur Specific [place] Urine Protein Urine Glucose (UA) Urine Ketones Urine Blood Urine Nitrite Urine Bilirubin Urine Urobilinogen (Auto) Ur Leukocyte Esterase Urine RBC Urine WBC Ur Squamous Epith Cells Urine Bacteria ABG Interpretation ABG results: 09/03/24 11:17 VBG pH 7.43 VBG pCO2 36 VBG pO2 49 D VBG Base Excess 0 Assessment & Plan Assessment: Acute Asthma Exacerbation Acute Hypersensitivity Pneumonia with suspected superimposed atypical vs Gram negative bacterial pneumonia - received continuous breathing treatment in ED with very mild improvement of dyspnea - Pulmonology following, appreciate recs - DC mucomyst due to bronchospasm, continue with duonebs q4h and PRN breathing treatments. - Solumedrol 80mg IV BID - Continue with azithromycin and rocephin - chest physiotherapy ordered - Pending infectious w/u including legionella, sputum cultures, [id number] - Holding mycophenolate in the setting of acute flare/ infection due to immunosuppression - Patient will ultimately need referral to tertiary center for ILD clinic upon discharge and Trelegy, as well as long steroid taper DARIELA on CKD, resolving - receiving 1L bolus in ED - improved with PO hydration, continued to encouraged PO hydration Type 2 IDDM - A1c 8.0 - hyperglycemia 2/2 recent increased need for steroids - Will decrease lantus to 30 u qHS due to hypoglycemia this AM - continue lispro 10u TID with sliding scale - titrate insulin as needed - low consistent carb diet - holding oral hypoglycemic agents due to DARIELA Hypertension - pt at baseline has orthostatic hypotension - continue home metoprolol 12.5mg PO BID - restart home entresto with improvement of DARIELA CAD - continue home ASA, plavix and rosuvastatin Plan: GI ppx: pepcid Nutrition: low consistent carbohydrate DVT Prophylaxis: Heparin 5000u q8h Code Status: full disposition: Telemetry, anticipate DC in next 48-72h Time Spent with Patient Time: Total time spent is greater than 50% in coordination of care (as documented) at patient's floor/unit and/or counseling patient: 30min Time with patient: 25 - 35 minutes Reason for Continued Stay Reason for continued stay: further monitoring Quality Measures Quality Measures none Advance care planning discussed with:: patient and child
[2024-09-04] MEDS: cefTRIAXone/D5w 1gm IV premix 1 GM/50 ML BAG IV (08:45)
[2024-09-04] MEDS: FAMOTIDINE INJ 10 MG/ML VIAL 2 ML IVP ×2 (08:45→21:34)
[2024-09-04] MEDS: METOPROLOL TARTRATE 25 MG TABLET 12.5 MG PO ×2 (08:45→21:32)
[2024-09-04] MEDS: ASPIRIN EC 81 MG TABEC PO (08:46)
[2024-09-04] MEDS: CLOPIDOGREL BISULFATE 75 MG TABLET PO (08:46)
[2024-09-04] MEDS: AZITHROMYCIN INJ 500 MG in SODIUM CHLORIDE 0.9% 250 ML 250 ML 250 MG IV (09:15)
--- NOTE | 2024-09-04 12:50 | PC.SS ---
PATIENT ACCESS REPRESENTATIVE conducted bedside contact with the patient conduct initial assessment and to discuss discharge planning.? Patient confirmed demographic information.? Patient resides at home with family.? Patient resides in [place].? Patient visiting sister in [place] upon hospital admission.? Patient is retired.? Patient does not utilize any form of DME to assist with ambulation.? Patient does not utilize home oxygen.? Patient describes the ability to complete ADL?s independently.? Patient possess a nebulizer for home use.? Patient identified daughter, Callie Medina as medical surrogate decision maker.? Patient conducts appointments with her PCP, roof assembler, and can marker in May and November for routine follow up.? Providers are located in [place].? Patient does not participate with dialysis.? Patient utilizes [facility]; for pharmacy services while visiting family in [place].? Plan is for the patient to return home at the time of discharge.? Family will provide transportation on behalf of the patient. ?No further discharge needs identified by the patient.? No further intervention required at this time, high school social science teacher will be available to address any further concerns.? Next of Kin: Callie Phanrid D/C Plan: Home
[2024-09-04] MEDS: INSULIN LISPRO (AdmeLOG) 1 UNIT/0.01 ML UNIT SC (18:11)
[2024-09-04] MEDS: INSULIN GLARGINE (Lantus) 5 UNIT/0.05 ML (PER 5 UNITS) 30 UNIT SC (21:35)
[2024-09-04] MEDS: ATORVASTATIN CALCIUM 20 MG TABLET 80 MG PO (21:47)
[2024-09-05] VITALS (16 sets, daily range): BP systolic 129–149; BP diastolic 54–75; PULSE 61–84; RESP 18–24; TEMP 36.2–36.6; O2SAT 92–100; BMI 32.9
[2024-09-05] MEDS: ALBUTEROL/IPRATROPIUM (Duoneb) RT SOL 3 ML NEBU INH ×7 (02:33→23:49)
[2024-09-05] MEDS: HEPARIN SOD INJ 5000 UNIT/ML VIAL SC ×3 (05:38→21:22)
[2024-09-05 06:06] LABS: Basophils # (Auto) 0.1 Thou/mm3 (0.0-0.2); Basophils % (Auto) 0 % (0-2.5); Eosinophils # (Auto) 0.0 Thou/mm3 (0.0-0.5); Eosinophils % (Auto) 0 % (0-10); Hematocrit 37.9 % (36.0-46.0); Hemoglobin 12.1 g/dL (12.0-16.0); Immature Granulocytes Auto 0.70 Thou/mm3 (0.00-0.00); Lymphocytes # (Auto) 1.6 Thou/mm3 (1.0-4.8); Lymphocytes % (Auto) 10 % (10-50); Mean Corpuscular HGB Conc 31.9 g/dl (31.0-37.0); Mean Corpuscular Hemoglobin 25.3 pg (25.0-35.0); Mean Corpuscular Volume 79 fL (80-100); Monocytes # (Auto) 0.3 Thou/mm3 (0.0-0.8); Monocytes % (Auto) 2 % (0-12); Neutrophils # (Auto) 14.0 Thou/mm3 (1.8-7.7); Neutrophils % (Auto) 84 % (37-80); Nucleated Red Blood Cell # 0.00 Thou/mm3 (0.00-0.00); Nucleated Red Blood Cell % 0 /100 WBC (0); Platelet Count 347 Thou/mm3 (140-440); RDW Standard Deviation 50.1 fL (36.4-46.3); Red Blood Count 4.78 Miln/mm3 (4.00-5.20); White Blood Count 16.7 Thou/mm3 (3.6-11.0)
[2024-09-05 06:30] LABS: Alanine Aminotransferase 23 U/L (10-49); Albumin, Serum 3.7 gm/dL (3.4-4.8); Albumin/Globulin Ratio 1.8 (1.2-2.2); Alkaline Phosphatase 70 U/L (46-116); Anion Gap 11 (7-16); Aspartate Amino Transferase 17 U/L (0-34); BUN/Creatinine Ratio 17 Ratio (12-20); Bilirubin,Total 0.3 mg/dL (0.3-1.2); Blood Urea Nitrogen 22 mg/dL (9-23); Calcium 8.6 mg/dL (8.3-10.6); Calcium (Corrected) 8.8 mg/dL (8.5-10.1); Carbon Dioxide 22.6 mMol/L (20.0-31.0); Chloride 105 mMol/L (98-107); Creatinine (Component) 1.3 mg/dL (0.6-1.3); Estimated Creatinine Clearance 43.6 mL/min (>60); Globulin 2.1 gm/dL (2.3-3.5); Glucose 194 mg/dL (74-106); Osmolality,Calculated 285 (275-295); Potassium 4.9 mMol/L (3.4-5.1); Sodium 139 mMol/L (136-145); Total Protein 5.8 gm/dL (5.7-8.2); eGFR 45 See Note
--- NOTE | 2024-09-05 07:34 | ESPR_ITS ---
Documentation for date of: 09/05/24 Subjective - Hospitalist Subjective Interval history: Patient seen and evaluated this AM. She states that she had a coughing spell last night such that she got very short of breath. Patient used two extra breathing treatments yesterday and had some episodes dyspnea on exertion while ambulating from one end of the room to the other. She otherwise has no acute complaints. Afebrile overnight Exam Vital Signs Temp Pulse Resp BP Pulse Ox O2 Del Method 97.4 F 61 24 H 147/58 H 100 Room Air 09/05/24 04:00 09/05/24 06:11 09/05/24 06:11 09/05/24 04:00 09/05/24 06:11 09/05/24 04:00 Narrative Gen: No acute distress HEENT: NCAT, PERRLOU, Sclera anicteric, conjunctiva noninjected, oral mucosa moist without erythema Neck: Supple, full range of motion, no LAD CV: RRR, no murmurs, rubs or gallops Resp: improved air movement, chest wall expansion equal b/l, mild wheezing noted in right middle lung field, mild bibasilar rhonchi GI: abdomen soft, bowel sounds noted, no tenderness to palpation, no guarding or rebound tenderness, no organomegaly Skin: clean, dry, no rashes, lesions or ecchymosis Ext: no clubbing, cyanosis, or edema Neuro: A&O x3, CN II- XII intact b/l, no focal neurological deficits Objective - Hospitalist Labs Diagram: 09/05/24 04:30 09/05/24 04:30 Labs: Laboratory Results - last 24 hr 09/05/24 04:30 WBC 16.7 H RBC 4.78 Hgb 12.1 Hct 37.9 MCV 79 L MCH 25.3 MCHC 31.9 RDW Std Deviation 50.1 H Plt Count 347 D Neut % (Auto) 84 H Lymph % (Auto) 10 [place] % (Auto) 2 Eos % (Auto) 0 Baso % (Auto) 0 Neut # (Auto) 14.0 H Lymph # (Auto) 1.6 [place] # (Auto) 0.3 Eos # (Auto) 0.0 Baso # (Auto) 0.1 Immature Gran # (Auto) 0.70 H Absolute Nucleated RBC 0.00 Immature Gran % 4 H Nucleated RBC % 0 Sodium 139 Potassium 4.9 D Chloride 105 Carbon Dioxide 22.6 Anion Gap 11 BUN 22 Creatinine 1.3 Estim Creat Clear Calc 43.6 L eGFR 45 L BUN/Creatinine Ratio 17 Glucose 194 H Calculated Osmolality 285 Calcium 8.6 Corrected Calcium 8.8 Total Bilirubin 0.3 AST 17 ALT 23 Alkaline Phosphatase 70 Total Protein 5.8 Albumin 3.7 Globulin 2.1 L Albumin/Globulin Ratio 1.8 ABG Interpretation ABG results: 09/03/24 11:17 VBG pH 7.43 VBG pCO2 36 VBG pO2 49 D VBG Base Excess 0 Assessment & Plan Assessment: Acute Asthma Exacerbation Acute Hypersensitivity Pneumonia with suspected superimposed atypical vs Gram negative bacterial pneumonia - received continuous breathing treatment in ED with very mild improvement of dyspnea - Pulmonology following, appreciate recs - Pending infectious w/u including legionella, sputum cultures, [id number] - Holding mycophenolate in the setting of acute flare/ infection due to immunosuppression - DC mucomyst due to bronchospasm - switch duonebs from q4h to q6h with q2h PRN - Tapering Solumedrol 80mg to 60mg IV BID - Continue with azithromycin and rocephin - chest physiotherapy ordered - encouraged patient to ambulate - robitussin AC for cough PRN - Patient will ultimately need referral to tertiary center for ILD clinic upon discharge and Trelegy, as well as long steroid taper Type 2 IDDM - A1c 8.0 - hyperglycemia 2/2 recent increased need for steroids - Will decrease lantus to 30 u qHS due to hypoglycemia this AM - continue lispro sliding scale - titrate insulin as needed - low consistent carb diet - holding oral hypoglycemic agents due to DARIELA DARIELA on CKD, resolved - receiving 1L bolus in ED - encourage PO hydration Hypertension - pt at baseline has orthostatic hypotension - continue home metoprolol 12.5mg PO BID and entresto CAD - continue home ASA, plavix and rosuvastatin Plan: GI ppx: pepcid Nutrition: low consistent carbohydrate DVT Prophylaxis: Heparin 5000u q8h Code Status: full disposition: Telemetry, anticipate DC in next 24-48h Time Spent with Patient Time: Total time spent is greater than 50% in coordination of care (as documented) at patient's floor/unit and/or counseling patient: 30min Time with patient: 25 - 35 minutes Reason for Continued Stay Reason for continued stay: further monitoring Quality Measures Quality Measures none Advance care planning discussed with:: patient and child
[2024-09-05] MEDS: INSULIN LISPRO (AdmeLOG) 1 UNIT/0.01 ML UNIT SC ×3 (07:35→17:25)
[2024-09-05] MEDS: CLOPIDOGREL BISULFATE 75 MG TABLET PO (08:23)
[2024-09-05] MEDS: cefTRIAXone/D5w 1gm IV premix 1 GM/50 ML BAG IV (08:23)
[2024-09-05] MEDS: AZITHROMYCIN 250 MG TABLET PO (08:23)
[2024-09-05] MEDS: METOPROLOL TARTRATE 25 MG TABLET 12.5 MG PO ×2 (08:23→21:21)
[2024-09-05] MEDS: FAMOTIDINE INJ 10 MG/ML VIAL 2 ML IVP ×2 (08:25→21:20)
[2024-09-05] MEDS: ASPIRIN EC 81 MG TABEC PO (08:25)
[2024-09-05] MEDS: guaiFENesin/COD SYRUP 5 ML UDC 10 ML PO ×2 (08:44→23:49)
--- NOTE | 2024-09-05 11:43 | PC.NURSE ---
at 1141, Dr. LIMA made aware of pt blood sugar 272 and to receive 5 units per sliding scale protocol, order received for 5 units lispro x1
[2024-09-05] MEDS: INSULIN LISPRO (AdmeLOG) 1 UNIT/0.01 ML UNIT 5 UNIT SC ×2 (11:56→20:01)
--- NOTE | 2024-09-05 12:08 | PD.PUPROG ---
Documentation for date of: 09/05/24 Subjective Subjective Interval history: She is feeling significantly better no new complaints Critical Care Note Critical care time (min.): 0 Exam Vital Signs Temp Pulse Resp BP Pulse Ox O2 Del Method 97.6 F 73 21 H 149/57 H 100 Room Air 09/05/24 08:00 09/05/24 12:00 09/05/24 12:00 09/05/24 08:23 09/05/24 12:00 09/05/24 08:00 Narrative Exam GENERAL: Patient appears to be much improved HEENT: No facial asymmetry, EOM normal, e PULM: Significantly improved bilateral air movement, persistent but improved right greater than left rales and expiratory wheezing CARDIAC: Regular rate and rhythm with no pathologic murmurs and no S3 detected. S1, S2 normal GASTROINTESTINAL: Abdomen is soft and nontender EXTREMITIES: Peripheral pulses are palpable. SKIN: Warm and dry without significant rashes or discoloration. NEURO: Moves all extremities, responds to tactile stimulation, mental status is normal, symmetrical antigravity bilateral upper and lower extremity motor strength. Physical Exam Completion Physical Exam Complete?: Yes Objective - [facility] Labs 09/05/24 04:30 09/05/24 04:30 Labs: Laboratory Results - last 24 hr 09/05/24 04:30 WBC 16.7 H RBC 4.78 Hgb 12.1 Hct 37.9 MCV 79 L MCH 25.3 MCHC 31.9 RDW Std Deviation 50.1 H Plt Count 347 D Neut % (Auto) 84 H Lymph % (Auto) 10 [place] % (Auto) 2 Eos % (Auto) 0 Baso % (Auto) 0 Neut # (Auto) 14.0 H Lymph # (Auto) 1.6 [place] # (Auto) 0.3 Eos # (Auto) 0.0 Baso # (Auto) 0.1 Immature Gran # (Auto) 0.70 H Absolute Nucleated RBC 0.00 Immature Gran % 4 H Nucleated RBC % 0 Sodium 139 Potassium 4.9 D Chloride 105 Carbon Dioxide 22.6 Anion Gap 11 BUN 22 Creatinine 1.3 Estim Creat Clear Calc 43.6 L eGFR 45 L BUN/Creatinine Ratio 17 Glucose 194 H Calculated Osmolality 285 Calcium 8.6 Corrected Calcium 8.8 Total Bilirubin 0.3 AST 17 ALT 23 Alkaline Phosphatase 70 Total Protein 5.8 Albumin 3.7 Globulin 2.1 L Albumin/Globulin Ratio 1.8 Assessment & Plan Additional Assessment Additional Assessment: Acute exacerbation of obstructive lung disease: Improving nicely Sputum culture nonrevealing so far Complete antibiotics Transition to prednisone 60 mg p.o. daily x 2 days followed by 40 mg x 8 days, 20 mg x 3d, 10mg x3d and then off Her only long-acting inhaled outpatient medication is fluticasone; she should be transition to triple therapy with Trelegy Ellipta as an outpatient or equivalent combination inhaler. I also recommend outpatient follow up at a tertiary care facility ILD program. Additional Plan Additional Plan: PLAN: See MD orders and discussion above. Will continue supportive care of the organ system problems, diagnoses, and failures noted above. [A central line continues to be necessary for infusion of medications and IV fluids, it is to be removed when other adequate venous access is accomplished.] [Cannot be safely managed without restraints as potential for harm secondary to inadvertent movement and loss of tubes and lines outweighs the burdens of restraint.] This patient is critically ill and required [] minutes of my time to provide documentation, evaluate, manage and maintain or prevent deterioration of the organ systems and problems noted above. This critical care time does not include time I spent performing procedures that are reported separately. [If mccoy catheter present, it remains necessary to monitor urine output continuously, and/or divert urine from the skin. It will be removed per policy when it is not needed for these purposes.] Provider Notation Provider Notation: Although this document has been carefully reviewed, there may still be some phonetic and other typographical errors. These errors are purely grammatical due to imperfections in the software program and should not be construed in any way to compromise the substance of the patient's medical care during this visit. Thank you for the opportunity and privilege in assisting you with this patient's care and management.
--- NOTE | 2024-09-05 16:42 | PC.SS ---
Update: Patient on room air. P.O. feeds. Patient receiving IV steroids and IV antibiotics. No mccoy catheter placed.
[2024-09-05] MEDS: INSULIN GLARGINE (Lantus) 5 UNIT/0.05 ML (PER 5 UNITS) 30 UNIT SC (21:21)
[2024-09-05] MEDS: ATORVASTATIN CALCIUM 20 MG TABLET 80 MG PO (21:21)
[2024-09-06] VITALS (10 sets, daily range): BP systolic 130–157; BP diastolic 51–73; PULSE 61–85; RESP 19–29; TEMP 36–36.5; O2SAT 93–100; BMI 33.0
[2024-09-06] MEDS: ALBUTEROL/IPRATROPIUM (Duoneb) RT SOL 3 ML NEBU INH ×3 (04:08→13:53)
[2024-09-06] MEDS: guaiFENesin/COD SYRUP 5 ML UDC 10 ML PO ×3 (04:11→13:54)
[2024-09-06] MEDS: HEPARIN SOD INJ 5000 UNIT/ML VIAL SC ×2 (06:12→13:49)
[2024-09-06 06:28] LABS: Basophils # (Auto) 0.1 Thou/mm3 (0.0-0.2); Basophils % (Auto) 0 % (0-2.5); Eosinophils # (Auto) 0.0 Thou/mm3 (0.0-0.5); Eosinophils % (Auto) 0 % (0-10); Hematocrit 39.4 % (36.0-46.0); Hemoglobin 12.7 g/dL (12.0-16.0); Immature Granulocytes Auto 0.88 Thou/mm3 (0.00-0.00); Lymphocytes # (Auto) 2.0 Thou/mm3 (1.0-4.8); Lymphocytes % (Auto) 10 % (10-50); Mean Corpuscular HGB Conc 32.2 g/dl (31.0-37.0); Mean Corpuscular Hemoglobin 25.6 pg (25.0-35.0); Mean Corpuscular Volume 79 fL (80-100); Monocytes # (Auto) 0.4 Thou/mm3 (0.0-0.8); Monocytes % (Auto) 2 % (0-12); Neutrophils # (Auto) 16.9 Thou/mm3 (1.8-7.7); Neutrophils % (Auto) 84 % (37-80); Nucleated Red Blood Cell # 0.00 Thou/mm3 (0.00-0.00); Nucleated Red Blood Cell % 0 /100 WBC (0); Platelet Count 404 Thou/mm3 (140-440); RDW Standard Deviation 50.0 fL (36.4-46.3); Red Blood Count 4.97 Miln/mm3 (4.00-5.20); White Blood Count 20.2 Thou/mm3 (3.6-11.0)
[2024-09-06 07:09] LABS: Alanine Aminotransferase 27 U/L (10-49); Albumin, Serum 3.9 gm/dL (3.4-4.8); Albumin/Globulin Ratio 1.7 (1.2-2.2); Alkaline Phosphatase 72 U/L (46-116); Anion Gap 10 (7-16); Aspartate Amino Transferase 15 U/L (0-34); BUN/Creatinine Ratio 27 Ratio (12-20); Bilirubin,Total 0.4 mg/dL (0.3-1.2); Blood Urea Nitrogen 38 mg/dL (9-23); Calcium 9.1 mg/dL (8.3-10.6); Calcium (Corrected) 9.2 mg/dL (8.5-10.1); Carbon Dioxide 24.9 mMol/L (20.0-31.0); Chloride 103 mMol/L (98-107); Creatinine (Component) 1.4 mg/dL (0.6-1.3); Estimated Creatinine Clearance 40.5 mL/min (>60); Globulin 2.3 gm/dL (2.3-3.5); Glucose 240 mg/dL (74-106); Osmolality,Calculated 292 (275-295); Potassium 4.7 mMol/L (3.4-5.1); Sodium 138 mMol/L (136-145); Total Protein 6.2 gm/dL (5.7-8.2); eGFR 41 See Note
[2024-09-06] MEDS: INSULIN LISPRO (AdmeLOG) 1 UNIT/0.01 ML UNIT 5 UNIT SC ×2 (07:39→07:40)
[2024-09-06] MEDS: INSULIN LISPRO (AdmeLOG) 1 UNIT/0.01 ML UNIT SC ×2 (07:40→12:30)
[2024-09-06] MEDS: FAMOTIDINE INJ 10 MG/ML VIAL 2 ML IVP (08:39)
[2024-09-06] MEDS: CLOPIDOGREL BISULFATE 75 MG TABLET PO (08:40)
[2024-09-06] MEDS: AZITHROMYCIN 250 MG TABLET PO (08:40)
[2024-09-06] MEDS: cefTRIAXone/D5w 1gm IV premix 1 GM/50 ML BAG IV (08:40)
[2024-09-06] MEDS: ASPIRIN EC 81 MG TABEC PO (08:41)
[2024-09-06] MEDS: METOPROLOL TARTRATE 25 MG TABLET 12.5 MG PO (08:41)
--- NOTE | 2024-09-06 09:06 | PC.CC ---
Orders for [employer] 3 Plus CGM system signed by Dr. Aguilera and sent to [email or web address] via [email or web address] platform. Order tracking sent to daughter, Callie.
[2024-09-06] MEDS: INSULIN LISPRO (AdmeLOG) 1 UNIT/0.01 ML UNIT 8 UNIT SC (12:30)
[2024-09-06] MEDS: RINGERS LACTATED 1000 ML 500 ML 75 ML IV (12:39)
--- NOTE | 2024-09-06 15:01 | PC.SS ---
Update: Patient possible candidate for discharge today.
--- NOTE | 2024-09-06 16:09 | PD.HHDS ---
Planned Discharge Date 09/06/24 DS: Providers Provider Date of admission: 09/03/24 13:28 Primary care physician: Physician No Primary/Family Admitting Provider: Debbie Aguilera DO Attending Provider on Admission: Debbie Aguilera DO Consults: 09/03/24 11:11 Referral Respiratory Therapy Stat Comment: 09/03/24 13:45 Consult to Pulmonology Routine Comment: iLD Consulting Provider: Loren Peck Attending Provider on DC: Debbie Aguilera DO Discharging Provider: Debbie Aguilera DO Diagnosis Problem List Completed Was Problem List Reviewed/Reconciled?: Yes Discharge Assessment Assessment: Acute Asthma Exacerbation Acute Hypersensitivity Pneumonia with suspected superimposed atypical vs Gram negative bacterial pneumonia Reactive Leukocytosis 2/2 glucocorticoid use Type 2 IDDM DARIELA on CKD, resolved Hypertension CAD Patient is a 69-year-old female with past medical history of hypertension, insulin-dependent diabetes mellitus type 2, hypersensitivity pneumonitis, asthma, CAD status post 1 stent in 2011, CKD with baseline creatinine of 1.4 who presents to ED with worsening shortness of breath that initially started about 2 weeks ago. Patient was traveling in [place] when she first began to be short of breath. Patient was started on steroids with some improvement. However, for the past week she has been having worsening generalized weakness, cough, dyspnea on exertion and productive cough. Patient was initially diagnosed with hypersensitivity pneumonitis in 2016 status post VATS. And has been on mycophenolate and will take steroids for acute flares. Patient has been on prednisone at 60 mg daily which has caused some difficulty with controlling her blood sugars. Patient at baseline takes Trulicity at 20 units daily, but now requiring about 38 units and a total of 120 units of lispro throughout the day. Patient has been on DuoNebs 4 hours at home, but continues to have scattered wheezing and congestion. Patient has breaks in sentences while speaking. She denies any nausea, vomiting, shortness of breath, chest pain, fevers, chills, dysuria otherwise. Patient was admitted to telemetry for further workup and medical management of acute asthma exacerbation with concern of superimposed atypical versus gram-negative bacterial pneumonia. Patient does have a history of hypersensitive pneumonia versus ILD. Pulmonology was consulted and infectious workup was ordered. Home Cellcept was held due to immunosuppresion. Patient was treated for community acquired pneumonia with azithromycin and Rocephin. Sputum and blood cultures have been negative. Patient was placed on scheduled DuoNebs and IV steroids which were gradually tapered. Patient was found to have an A1c of 8 on admission, but blood glucose was poorly controlled due to steroid use. Patient has been much improved with scheduled DuoNebs and IV steroids. Leukocytosis likely reactive 2/2 steroids as well. Patient has been afebrile throughout admission. Patient is stable for discharge home at this time. She has a scheduled [facility] with [facility] in September. Clear discharge and medication instructions provided to patient and daughter. F/u with PCP within 1 week of discharge. Hospital Course - Hospitalist Time Spent with Patient Time attestation: Total time spent providing and/or coordinating discharge services: >30min Time spent: Greater than 30 minutes Discharge Results Labs Diagrams: 09/06/24 04:20 09/06/24 04:20 Labs: Short CBC 09/06/24 Range/Units 04:20 WBC 20.2 H (3.6-11.0) Thou/mm3 Hgb 12.7 (12.0-16.0) g/dL Hct 39.4 (36.0-46.0) % Plt Count 404 D (140-440) Thou/mm3 BMP 09/06/24 04:20 Sodium 138 Potassium 4.7 Chloride 103 Carbon Dioxide 24.9 BUN 38 H Creatinine 1.4 H Glucose 240 H Calcium 9.1 Liver Function 09/06/24 Range/Units 04:20 Total Bilirubin 0.4 (0.3-1.2) mg/dL AST 15 (0-34) U/L ALT 27 (10-49) U/L Alkaline Phosphatase 72 (46-116) U/L Albumin 3.9 (3.4-4.8) gm/dL Exam Vital Signs Temp Pulse Resp BP Pulse Ox O2 Del Method O2 Flow Rate 97 F 77 19 130/73 97 Room Air 6 09/06/24 12:20 09/06/24 13:53 09/06/24 13:53 09/06/24 12:20 09/06/24 13:53 09/06/24 12:20 09/05/24 18:19 Narrative Gen: No acute distress HEENT: NCAT, PERRLOU, Sclera anicteric, conjunctiva noninjected, oral mucosa moist without erythema Neck: Supple, full range of motion, no LAD CV: RRR, no murmurs, rubs or gallops Resp: scattered rhonchi, no wheezing GI: abdomen soft, bowel sounds noted, no tenderness to palpation, no guarding or rebound tenderness, no organomegaly Skin: clean, dry, no rashes, lesions or ecchymosis Ext: no clubbing, cyanosis, or edema Neuro: A&O x3, CN II- XII intact b/l, no focal neurological deficits Discharge Plan Plan Patient Disposition: HOME (Self Care) Patient condition on transfer: Stable Prescriptions/Referrals Prescriptions/Med Rec: New ipratropium-albuterol 0.5 mg-3 mg(2.5 mg base)/3 mL solution for nebulization 3 ml inhalation Q4HRRT 30 Days Qty: 180 0RF Trelegy Ellipta 100-62.5-25 mcg blister with device 1 inh inhalation QDAY Qty: 60 0RF insulin lispro 100 unit/mL Solution See Protocol SCi USEASDIRECTD 30 Days Qty: 10 2RF Protocol: Insulin Corrective High-Dose Regimen Condition: Fingerstick Blood Glucose Dose/Route: Insulin Units Condition: 141-180 mg/dl Dose/Route: 6 units/SQ Condition: 181-220 mg/dl Dose/Route: 8 units/SQ Condition: 221-260 mg/dl Dose/Route: 10 units/SQ Condition: 261-300 mg/dl Dose/Route: 12 units/SQ Condition: 301-350 mg/dl Dose/Route: 14 units/SQ Condition: 351-400 mg/dl Dose/Route: 16 units/SQ Condition: greater than 400 mg/dl Dose/Route: 18 units/SQ azithromycin 250 mg Tablet 250 mg PO QDAY 1 Days Qty: 1 0RF prednisone 20 mg tablet See Taper PO QDAY Qty: 30 0RF Taper: Prednisone Taper 60 mg DAILY for 5 Days and 0 Hour 40 mg DAILY for 5 Days and 0 Hour 20 mg DAILY for 5 Days and 0 Hour acetaminophen-codeine 300-30 mg tablet 1 tab PO Q6H PRN (Reason: pain) Qty: 20 0RF Continued ipratropium bromide 0.02 % solution 2.5 ml inhalation Q6H PRN (Reason: shortness of breath or wheezing) Qty: 150 1RF rosuvastatin [Crestor] 20 mg tablet 20 mg PO HS metformin 1,000 mg tablet extended release 24hr 1,000 mg PO QDAY albuterol sulfate 90 mcg/actuation HFA aerosol inhaler 2 inh inhalation Q4H PRN (Reason: shortness of breath or wheezing) fluoxetine 20 mg capsule 20 mg PO QDAY aspirin [Ecotrin Low Strength] 81 mg tablet,delayed release (DR/EC) 81 mg PO QDAY clopidogrel [Plavix] 75 mg tablet 75 mg PO QDAY dapagliflozin propanediol [Farxiga] 10 mg tablet 10 mg PO QDAY [place] 5 mg 5 mg QWEEK metoprolol tartrate 25 mg tablet 12.5 mg PO Q12H Entresto 24-26 mg tablet 1 tab PO BID Changed insulin degludec [Tresiba FlexTouch U-100] 100 unit/mL (3 mL) insulin pen 34 unit subcut QDAY 30 Days Qty: 15 0RF Held mycophenolate mofetil [CellCept] 500 mg tablet 750 mg PO BID Hold Instructions: Resume on 09/07/24. Discontinued acetaminophen-codeine 300-30 mg tablet 2 tab PO Q8H MDD 6 PRN (Reason: cough) Qty: 20 0RF fluticasone furoate-vilanterol inhalation QDAY Patient Comments: 184/22 mcg insulin lispro 100 unit/mL insulin pen 1 sliding scale dose subcut USEASDIRECTD Referrals: No Primary/Family,Physician [Primary Care Provider] - Patient/Caregiver Discharge Instructions Other Discharge Activity Instructions:: F/u with PCP within 1 week of dc Print Language: Luxem[place]ish Stand Alone Forms: Betty Award Info., Patient Portal Info Letter Discharge Order Discharge Orders: Discharge (Routine); Ordered 09/06/24 Ordered By: Debbie Aguilera Quality Discharge Quality Measures VTE prophylaxis (heparin)
== END 2024-09-06 16:19 | disposition home or self-care (01) | DRG 197 ==
LOC: SERX 12:44 → SERHOLD 13:46 → S2SX 14:58
PROVIDERS: Admitting Provider Internal Medicine; Emergency Provider Family Medicine; Visit Provider Internal Medicine
DX: J67.9 Hypersensitivity pneumonitis due to unspecified organic dust (principal); J44.0 Chronic obstructive pulmonary disease with (acute) lower respiratory infection; N17.9 Acute kidney failure, unspecified; J44.1 Chronic obstructive pulmonary disease with (acute) exacerbation; J15.9 Unspecified bacterial pneumonia; E86.0 Dehydration; E87.6 Hypokalemia; E11.65 Type 2 diabetes mellitus with hyperglycemia; T38.0X5A Adverse effect of glucocorticoids and synthetic analogues, initial encounter; J47.9 Bronchiectasis, uncomplicated; I25.10 Atherosclerotic heart disease of native coronary artery without angina pectoris; E11.22 Type 2 diabetes mellitus with diabetic chronic kidney disease; E11.649 Type 2 diabetes mellitus with hypoglycemia without coma; I12.9 Hypertensive chronic kidney disease with stage 1 through stage 4 chronic kidney disease, or unspecified chronic kidney disease; N18.9 Chronic kidney disease, unspecified; J84.112 Idiopathic pulmonary fibrosis; I95.1 Orthostatic hypotension; Z79.4 Long term (current) use of insulin; Z79.624 Long term (current) use of inhibitors of nucleotide synthesis; Z79.82 Long term (current) use of aspirin; Z79.84 Long term (current) use of oral hypoglycemic drugs; Z98.61 Coronary angioplasty status
CPT/HCPCS: 36415; 71250; 80053; 81001; 82803; 83036; 83605; 83735; 83880; 84145; 84484; 85025; 85610; 85730; 87040; 87205; 87449; 87811; 93225; 94640; 94644; 94664; 94667; A9270; J0456; J0696; J1644; J1815; J2919; J3475; J3490; J7050; J7120; J7999; J7609